=== PATIENT | female | born 1970 | race Caucasian/White ===

== ENCOUNTER 2020-08-06 20:29 | Emergency (ER) | payer MEDICAID, SELFPAY ==
[2020-08-06 20:45] VITALS: BP 154/77; PULSE 62; RESP 18; TEMP 36.8; O2SAT 98; BMI 31.1
--- NOTE | 2020-08-06 20:52 | XRR_ITS ---
PROCEDURE INFORMATION: Exam: XR Right Foot Complete Exam date and time: 08/06/2020 9:17 PM Age: 50 years old Clinical indication: Injury or trauma; Fall; Sprain or strain; Foot; Right TECHNIQUE: Imaging protocol: XR Right foot. Views: 3 or more views. COMPARISON: No relevant prior studies available. FINDINGS: Bones/joints: Normal. Soft tissues: Normal. XR/XR foot RT min 3V* [id number] IMPRESSION: No acute findings.
--- NOTE | 2020-08-06 20:52 | XRR_ITS ---
PROCEDURE INFORMATION: Exam: XR Right Ankle Exam date and time: 08/06/2020 9:17 PM Age: 50 years old Clinical indication: Injury or trauma; Fall; Swelling (edema); Ankle; Right TECHNIQUE: Imaging protocol: XR Right ankle. Views: 3 or more views. COMPARISON: No relevant prior studies available. FINDINGS: Bones/joints: Normal. Soft tissues: Normal. XR/XR ankle RT min 3V* [id number] IMPRESSION: No acute findings.
--- NOTE | 2020-08-06 20:56 | XRR_ITS ---
PROCEDURE INFORMATION: Exam: XR Right Elbow Exam date and time: 08/06/2020 9:19 PM Age: 50 years old Clinical indication: Injury or trauma; Fall; Sprain or strain; Elbow; Right TECHNIQUE: Imaging protocol: XR Right elbow. Views: 3 or more views. COMPARISON: No relevant prior studies available. FINDINGS: Bones/joints: Normal. Soft tissues: Normal. XR/XR elbow RT min 3V* [id number] IMPRESSION: No acute findings.
--- NOTE | 2020-08-06 20:58 | W.ED.FALL ---
HPI - Fall General: Chief Complaint: Fall Stated Complaint: pain on right side/fall Time Seen by Provider: 08/06/20 20:54 Source: patient Mode of arrival: ambulatory Limitations: no limitations History of Present Illness: HPI Narrative: 50-year-old female states she was walking this evening and rolled her right foot on a big rock. She states that she rolled on the lateral aspect is having mainly pain to the lateral aspect of her right foot. Patient has mild ankle pain. She states she then fell and landed on her right elbow and has elbow pain she rates a 3 out of 10. States the worst pain is by far in her foot that she rates a 6 out of 10. She is able to ambulate but states it is painful. She denies any other injuries with her fall. Denies hitting her head. Associated symptoms-after fall: Denies abdominal pain, chest pain or headache(s) Review of Systems Const: Denies: fever(s), chills, body aches or change in appetite Eyes: Denies: blurry vision or eye discomfort ENMT: Denies: throat pain or dental pain Card: Denies: chest pain Resp: Denies: dyspnea GI: Denies: abdominal pain, nausea, vomiting or diarrhea : Denies: dysuria Musc: Reports: extremity pain Skin/Breast: Denies: rash Neuro: Denies: headache(s) Psych: Denies: depression Steven/Lymph: Denies: easy bruising All/Imm: Denies: urticaria [facility] Female Reproductive History: Date of last menstrual period: 08/03/20 Physical Exam Const: COMMON NORMALS: no acute distress, patient oriented x3 and healthy appearing HENMT: COMMON NORMALS: normocephalic and atraumatic HEAD & SCALP: normocephalic and atraumatic Eye: COMMON NORMALS: Equal, round and reactive pupils present and EOMs intact bilaterally PUPIL: Yes Equal, round and reactive pupils present Neck/C-Spine: COMMON NORMALS: full ROM and supple Chest: COMMONS NORMALS: normal inspection of the chest and normal palpation of entire chest wall Resp: COMMON NORMALS: normal respiratory effort, No retractions, No use of accessory muscles and clear to auscultation bilaterally AUSCULTATION: clear to auscultation bilaterally Cardio: COMMON NORMALS: regular rate, regular rhythm and No murmurs present (Cardio) RATE: regular rate RHYTHM: regular rhythm GI: COMMON NORMALS: Normal to inspection, nondistended, normoactive bowel sounds present, Soft to palpation, non-tender and no masses PALPATION: Yes Soft to palpation Extremity: NARRATIVE EXTREMITY EXAM: Slight tenderness over olecranon process on the right elbow. She has full range of motion without any deformity. She has very minimal right ankle tenderness but does have tenderness over the right lateral aspect of her foot but no deformities. Neuro: COMMON NORMALS: patient oriented x3, moves all extremities and no focal motor deficits Psych: COMMON NORMALS: mental status grossly normal, Normal thought process present and cooperative THOUGHT PROCESS: Normal thought process present Skin: COMMON NORMALS: no rashes or lesions noted and no wounds GENERAL SKIN EXAM: no rashes or lesions noted Course Vital Signs: Vital signs: Vital Signs Temperature 98.3 F 08/06/20 20:45 Pulse Rate 62 08/06/20 20:45 Respiratory Rate 18 08/06/20 20:45 Blood Pressure 154/77 08/06/20 20:45 Pulse Oximetry 98 08/06/20 20:45 MDM - Fall MDM Narrative: Medical decision making narrative: Patient presents with a fall. Patient has a foot sprain with no signs of fracture. She is able ambulate will Cas wrap and have her weight-bear as tolerated. She is to ice and use Naprosyn. X-ray of her elbow is normal and likely has a contusion. She is stable for discharge is to follow-up with her PCP and return if worsening. Imaging Data^: X-ray right foot: Attestation: I personally reviewed and interpreted this imaging study as follows: My impression: No acute abnormality X-ray right ankle: My impression: No acute abnormality Discharge Plan Discharge Patient Disposition: Home Clinical Impression: Contusion of elbow, right Foot sprain Qualifiers: Encounter type: initial encounter Laterality: right Qualified Code(s): S93.601A - Unspecified sprain of right foot, initial encounter Condition: Stable Prescriptions: New Naprosyn 500 mg tablet 500 mg PO BID PRN (Reason: pain) Qty: 20 RF: 0 Discharge Orders: Discharge Order (Routine); Ordered 08/06/20 Ordered By: Vickie Menjivar Referrals: Francisco Corcoran FNP [Primary Care Provider] - Discharge Diet: Advance as tolerated Discharge Activity: Resume usual activity Patient Instructions: Foot Sprain (ED) Coding Level of Care Code ED Inbound Sales Consultant for Dejon Fwvianca Exam Comprehensive
[2020-08-06] MEDS: HYDROcodone-acetaminophen 5-325 mg Tablet 1 TAB PO (21:25)
--- NOTE | 2020-08-06 21:27 | PC.NURSE ---
3 inch loli wrap applied to R ankle all SMCs intact prior and post procedure. Pt tolerated well.
[2020-08-06 22:03] VITALS: BP 142/74; PULSE 88; RESP 16; O2SAT 99
== END 2020-08-06 22:04 | disposition home or self-care (01) ==
PROVIDERS: Emergency Provider Emergency Medicine; PCP Nurse Practitioner Family
DX: S93.601A Unspecified sprain of right foot, initial encounter (principal); S50.01XA Contusion of right elbow, initial encounter; W19.XXXA Unspecified fall, initial encounter
CPT/HCPCS: 12345; 73080; 73610; 73630; 99282; 99283

== ENCOUNTER 2021-06-18 16:44 | Emergency (ER) | payer MEDICAID, SELFPAY ==
[2021-06-18 17:34] VITALS: BP 162/78; PULSE 74; RESP 18; TEMP 36.9; O2SAT 99
[2021-06-18 18:04] VITALS: BP 116/73; PULSE 63; RESP 16; TEMP 36.8; O2SAT 99
--- NOTE | 2021-06-18 18:28 | W.ED.ANIMALB ---
HPI - Animal Bite General: Chief Complaint: Animal Bite Stated Complaint: ANIMAL BITE Time Seen by Provider: 06/18/21 18:13 History of Present Illness: HPI narrative: Patient is a 50-year-old female comes to the ED with a dog bite to her right lower leg. Patient was [place] a campground today and was walking back to her campsite and another dog ran up and bit her right lower ankle. Attack was unprovoked. Patient says the dog appeared to be a pit ball. She was able to get in contact with the tie in hand of the dog and they do have paper showing that the dog has been fully vaccinated and has had his rabies vaccination. After dog bite patient cleaned wound with some alcohol and then apply triple antibiotic ointment and bandage. Patient is up-to-date on her tetanus. Associated symptoms: Deny chills, fever(s) or headache(s) Review of Systems Const: Denies: fever(s), chills or fatigue Eyes: Denies: change in vision or eye discomfort ENMT: Denies: throat pain, odynophagia, nasal discharge or nasal congestion Card: Denies: chest pain, palpitations, edema, swelling of feet/ankles, dyspnea on exertion or orthopnea Resp: Denies: dyspnea, productive cough or non-productive cough GI: Denies: abdominal pain, nausea, vomiting, diarrhea, constipation or hematochezia : Denies: flank pain, dysuria or hematuria Musc: Denies: neck pain, back pain or extremity swelling Skin/Breast: Reports: new lesions (dog bite to right lower leg); Denies: rash Neuro: Denies: headache(s), numbness in extremities or weakness in extremities [facility] ED PFSH: Medical History No pertinent past medical history Surgical History No pertinent past surgical history Family History Grandmother Cancer breast Son Cancer hodgkins Lymphoma Denies family history of Diabetes CAD (coronary artery disease) Anesthesia complication Bleeding disorder Social History Smoking and tobacco status: never smoked Second hand smoke exposure: No Alcohol intake: never Lives independently: Yes Household members: spouse Marital status: service: No Current occupational status: disabled History of recent travel: No Current gender identity: Female Special dorian needs: No Agree to transfusion: Yes Female Reproductive History: Date of last menstrual period: 08/03/20 Physical Exam Const: COMMON NORMALS: no acute distress, patient oriented x3, healthy appearing and alert GENERAL APPEARANCE: cooperative and comfortable HENMT: COMMON NORMALS: normocephalic HEAD & SCALP: normocephalic MOUTH: Normal oral and palatal mucosa present THROAT: posterior oropharynx normal and uvula midline Neck/C-Spine: COMMON NORMALS: supple GENERAL: Yes normal visual inspection Resp: COMMON NORMALS: normal respiratory effort, No retractions, No use of accessory muscles and clear to auscultation bilaterally AUSCULTATION: clear to auscultation bilaterally Cardio: COMMON NORMALS: regular rate, regular rhythm, S1 normal heart sound present, S2 normal heart sound present, No gallops present (Cardio), No clicks present (Cardio), No murmurs present (Cardio) and Peripheral pulses 2+ throughout RATE: regular rate RHYTHM: regular rhythm HEART SOUNDS: S1 normal heart sound present and S2 normal heart sound present PERIPHERAL PULSES: Peripheral pulses 2+ throughout GI: COMMON NORMALS: Normal to inspection, nondistended, normoactive bowel sounds present, Soft to palpation, non-tender and no masses PALPATION: Yes Soft to palpation : COMMON NORMALS: Yes no CVA tenderness BLADDER/KIDNEY EXAM: Yes no CVA tenderness Back/Pelvis: COMMON NORMALS: no CVA tenderness Extremity: NARRATIVE EXTREMITY EXAM: Right lower extremity?0.75cm superficial linear laceration on posterior aspect of right lower leg just superior to the ankle. Minimal bleeding noted. Some superficial abrasions also noted to right lower leg with some ecchymosis as well. GENERAL: Yes normal exam except as noted Neuro: COMMON NORMALS: patient oriented x3 and moves all extremities SENSORIUM/ORIENTATION: Yes alert Skin: NARRATIVE SKIN EXAM: Right lower extremity?0.75cm superficial linear laceration on posterior aspect of right lower leg just superior to the ankle. Minimal bleeding noted. Some superficial abrasions also noted to right lower leg with some ecchymosis as well. GENERAL SKIN EXAM: dry skin Procedures Laceration Laceration 1: Site: lower extremity (posterior lower leg just superior to ankle) Side (If applicable): right Size (cm): 0.75 Description: linear and clean Depth: simple, single layer Local Anesthetic: lidocaine 1% and with epi Amount of anesthesia used (mL): 10 Pre-repair: irrigated extensively (With normal saline and cleaned with iodine swab) Skin layer closed with: nylon Size (cm): 4-0 Number of sutures: 2 Technique: simple, interrupted Course Vital Signs: Vital signs: Vital Signs Temperature 97.7 F 06/18/21 19:41 Pulse Rate 60 06/18/21 19:41 Respiratory Rate 16 06/18/21 19:41 Blood Pressure 129/82 06/18/21 19:41 Pulse Oximetry 99 06/18/21 19:41 MDM - Animal Bite MDM Narrative: Medical decision making narrative: Patient is a 50-year-old female comes to the ED with a dog bite to right lower extremity. The dog that bit patient is fully vaccinated and has had rabies vaccination. Bite on right lower leg was irrigated extensively with normal saline and cleaned with iodine swab. Lidocaine 1% with epi was used as local and then 2 sutures were placed to close laceration from bite allison. Patient was given a dose of Augmentin here and then the nurse applied triple antibiotic ointment on bite and bandaged. Patient was told to follow-up with PCP in 7 to 10 days reevaluation. Return to ED precautions given. She was discharged home with a prescription for Augmentin. Patient understood and agreed with plan. Discharge Plan Discharge Patient Disposition: Home Clinical Impression: Dog bite Qualifiers: Encounter type: initial encounter Qualified Code(s): W54.0XXA - Bitten by dog, initial encounter Condition: Stable Prescriptions: New Augmentin 500-125 mg tablet 1 tab PO BID 7 Days Qty: 14 RF: 0 No Action valacyclovir [Valtrex] 1 gram tablet 1,000 mg PO Q8H 7 Days Qty: 21 RF: 0 pregabalin [Lyrica] 50 mg capsule 50 mg PO TID Qty: 90 RF: 0 Naprosyn 500 mg tablet 500 mg PO BID PRN (Reason: pain) Qty: 20 RF: 0 Discharge Orders: Discharge ED (Routine); Ordered 06/18/21 Ordered By: Harpreet Guevara Referrals: Francisco Corcoran FNP [Primary Care Provider] - Discharge Diet: Regular Discharge Activity: Limit activity as instructed Patient Instructions: Animal Bite (ED), Suture Care (ED), Laceration (ED) Activity Restrictions/Additional Instructions: Take full course of antibiotics as prescribed. Keep laceration site clean and dry for the next 48 hours. Then after that you can clean and re-bandage daily. Watch for signs of infection such as redness, warmth, increased tenderness and puslike drainage. If you see the signs of infection return to the ED, urgent care or PCP for reevaluation. call your PCP to schedule a follow-up appointment for reevaluation and suture removal in about 10 days. Continue taking all home meds. Follow discharge plans as discussed. You can return to the ED if symptoms worsen. Coding Level of Care Code ED Quality Improvement Analyst for Dejon Thomason Exam Comprehensive
[2021-06-18] MEDS: neomycin-poly-bacitracin oint 0.9 gm Pkt 1 APPLIC TOPICAL (19:13)
[2021-06-18] MEDS: amoxicillin-clav 500-125 mg Tablet 1 TAB PO (19:14)
--- NOTE | 2021-06-18 19:22 | PC.NURSE ---
Patients wounds are cleaned and dressed on thumb and dressed on right lower calf. Patient tolerates without complaint.
[2021-06-18 19:41] VITALS: BP 129/82; PULSE 60; RESP 16; TEMP 36.5; O2SAT 99
== END 2021-06-18 19:44 | disposition home or self-care (01) ==
PROVIDERS: Emergency Provider Physician Assistant; PCP Nurse Practitioner Family
DX: S81.851A Open bite, right lower leg, initial encounter (principal); W54.0XXA Bitten by dog, initial encounter
CPT/HCPCS: 12001; 99283

== ENCOUNTER 2021-06-21 19:20 | Emergency (ER) | payer MEDICAID, SELFPAY ==
[2021-06-21 19:43] VITALS: BP 135/74; PULSE 101; RESP 18; TEMP 37.4; O2SAT 100; BMI 30.4
--- NOTE | 2021-06-21 22:06 | W.ED.ANIMALB ---
HPI - Animal Bite General: Chief Complaint: Animal Bite Stated Complaint: Dog Bite Infected Time Seen by Provider: 06/21/21 22:06 History of Present Illness: HPI narrative: 50-year-old female comes in today for complaints of malaise, chills, and increased pain to the right lower extremity. On the patient was bit by a dog while at the park. Patient was started on Augmentin taking the first dose on Saturday. Patient comes in due to worsening symptoms. Patient is alert oriented. Review of Systems General: Reports: 10 or more systems reviewed and unremarkable except in HPI and below Skin/Breast: Reports: other (Pain and redness to wound) PFSH ED PFSH: Medical History No pertinent past medical history Surgical History No pertinent past surgical history Family History Grandmother Cancer breast Son Cancer hodgkins Lymphoma Denies family history of Diabetes CAD (coronary artery disease) Anesthesia complication Bleeding disorder Social History Smoking and tobacco status: never smoked Second hand smoke exposure: No Alcohol intake: never Lives independently: Yes Household members: spouse Marital status: service: No Current occupational status: disabled History of recent travel: No Current gender identity: Female Special dorian needs: No Agree to transfusion: Yes Female Reproductive History: Date of last menstrual period: 08/03/20 Physical Exam Const: COMMON NORMALS: no acute distress and patient oriented x3 GENERAL APPEARANCE: cooperative HENMT: COMMON NORMALS: normocephalic and Normal external nose present HEAD & SCALP: normal to inspection and normocephalic NOSE: Normal external nose present MOUTH: Normal oral and palatal mucosa present Eye: GENERAL EYE: appearance normal, both eyes and all related structures Neck/C-Spine: COMMON NORMALS: full ROM Chest: COMMONS NORMALS: normal inspection of the chest Resp: COMMON NORMALS: normal respiratory effort EFFORT & INSPECTION: Yes able to speak in complete sentences Cardio: COMMON NORMALS: regular rate and regular rhythm RATE: regular rate RHYTHM: regular rhythm GI: COMMON NORMALS: non-tender Extremity: COMMON NORMALS: normal to inspection Neuro: COMMON NORMALS: patient oriented x3 and moves all extremities Psych: COMMON NORMALS: mental status grossly normal and cooperative Skin: NARRATIVE SKIN EXAM: 2 cm draining linear laceration wound to the posterior right lower leg. 3 cm area of surrounding redness from the wound. Course Vital Signs: Vital signs: Vital Signs Temperature 99.4 F 06/21/21 19:43 Pulse Rate 80 06/21/21 22:22 Respiratory Rate 16 06/21/21 22:22 Blood Pressure 151/80 06/21/21 22:22 Pulse Oximetry 97 06/21/21 22:22 MDM - Animal Bite MDM Narrative: Medical decision making narrative: 50-year-old female comes in today with complaints of right lower leg pain at the site of a animal bite. Patient was concerned due to the worsening discomfort and pain to the leg and along the malaise today. On exam we note some redness to the wound site with 2 sutures maintaining approximation of the wound. Some purulent drainage is noted from the wound. Distal pulses are intact. Skin is warm and dry. Respirations are even. Abdomen soft nontender. Differential diagnosis includes foreign body, abscess, malingering. X-ray of the leg noted no foreign body. Ultrasound of the soft tissue noted no abscess. Laboratory values noted a normal white blood cell count, patient did have some changes in her sodium and potassium that may suggest some mild dehydration. Patient was given 500 mL of fluids 1 g of Rocephin and 15 mg of Toradol. Patient had improvement in symptoms. We will plan to stop the Augmentin and switch to cefdinir I think the patient might be having some intolerance to the Augmentin which is causing her discomfort and nausea. Patient will also be put on crutches due to her increased pain with ambulation on the leg. No signs of serious infection was noted at this time. Patient was written for 6 tablets of hydrocodone to help with pain. Sutures were removed for wound to allow for any drainage. Patient reported understanding of care plan and need for follow-up and return. Lab Data: Labs: Lab Results 06/21/21 06/21/21 06/21/21 Range/Units 22:15 22:15 22:15 WBC 5.3 (4.0-10.0) 10^3/ uL RBC 4.35 (4.1-5.3) 10^6/u L Hgb 13.1 (11.5-15.3) g/dL Hct 38.7 (37.0-47.0) % MCV 89.0 (81-99) fl MCH 30.1 (28.0-34.0) pg MCHC 33.9 (30.0-36.0) g/dL RDW 12.3 (12.1-15.1) % Plt Count 193 (130-400) 10^3/c mm MPV 10.1 (7.4-10.4) fL Neut % (Auto) 77.5 % Lymph % (Auto) 9.3 % [place] % (Auto) 12.0 % Eos % (Auto) 0.6 % Baso % (Auto) 0.4 % Neut # (Auto) 4.09 (1.8-7.7) 10^3/u L Lymph # (Auto) 0.5 L (0.8-4.8) 10^3/u L [place] # (Auto) 0.6 (0.2-0.9) 10^3/u L Eos # (Auto) 0.0 (0.0-0.8) 10^3/u L Baso # (Auto) 0.0 (0.0-0.1) 10^3/u L Nucleated RBC % (a uto) 0 % Nucleated RBCs # 0.0 /100WBC Sodium 135 L (136-145) mmol/L Potassium 3.2 L (3.5-5.1) mmol/L Chloride 97 L (98-107) mmol/L Carbon Dioxide 25 (22-29) mmol/L Anion Gap 16.2 (5-19) BUN 4 L (6-20) mg/dL Creatinine 0.5 (0.5-0.9) mg/dL GFR Calculation 130.6 H (90-130) mL/min Glucose 86 (65-115) mg/dL Calculated Osmolal ity 276 L (285-295) mOsm/k g Lactic Acid 0.7 (0.5-2.2) mmol/L Calcium 8.7 (8.5-10.5) mg/dL Total Bilirubin 0.3 (0.15-1.2) mg/dL AST 12 (0-32) U/L ALT 9 (0-33) U/L Alkaline Phosphata se 65 (35-105) IU/L Total Protein 8.1 (6.6-8.7) g/dL Albumin 4.2 (3.5-5.2) g/dL Globulin 3.9 (1.3-4.6) g/dL Discharge Plan Discharge Patient Disposition: Home Clinical Impression: Infected dog bite Adverse drug effect Qualifiers: Encounter type: initial encounter Qualified Code(s): T50.905A - Adverse effect of unspecified drugs, medicaments and biological substances, initial encounter Condition: Stable Prescriptions: New cefdinir 300 mg capsule 300 mg PO BID Qty: 14 RF: 0 ondansetron 4 mg tablet,disintegrating 4 mg PO Q8H PRN (Reason: nausea and vomiting) Qty: 7 RF: 0 hydrocodone-acetaminophen 5-325 mg tablet 1 tab PO Q8H PRN (Reason: pain (scale score 7-10)) Qty: 6 RF: 0 No Action valacyclovir [Valtrex] 1 gram tablet 1,000 mg PO Q8H 7 Days Qty: 21 RF: 0 pregabalin [Lyrica] 50 mg capsule 50 mg PO TID Qty: 90 RF: 0 Naprosyn 500 mg tablet 500 mg PO BID PRN (Reason: pain) Qty: 20 RF: 0 Augmentin 500-125 mg tablet 1 tab PO BID 7 Days Qty: 14 RF: 0 Discharge Orders: Discharge ED (Routine); Ordered 06/21/21 Ordered By: Jacek Walsh Discharge Diet: Usual diet Discharge Activity: Increase activity as tolerated Patient Instructions: Animal Bite (ED), Opioid Safety Activity Restrictions/Additional Instructions: Home and rest. Drink plenty of water with antibiotics. Elevate leg. Use medications as directed. Follow-up with primary care in 2 to 3 days for recheck. Return to the ER for worsening symptoms or new concerns. Use crutches until you can ambulate comfortably on leg. Coding Level of Care Code ED Data Keyer for Dejon Thomason Exam Comprehensive
--- NOTE | 2021-06-21 22:13 | XRR_ITS ---
PROCEDURE INFORMATION: Exam: XR Right Tibia and Fibula Exam date and time: 06/21/2021 10:13 PM Age: 50 years old Clinical indication: Injury or trauma; Wound; Ankle; Right; Foreign body involvement not specified; Patient HX: Dog bite to distal tib/fib. ; Additional info: Animal bite TECHNIQUE: Imaging protocol: XR Right tibia and fibula. Views: 2 views. COMPARISON: CR XR foot RT min 3V* [id number] 08/06/2020 8:58 PM FINDINGS: Bones/joints: Normal. Soft tissues: Normal. XR/XR tibia fibula RT 2V [id number] IMPRESSION: No acute findings.
--- NOTE | 2021-06-21 22:14 | USR_ITS ---
PROCEDURE INFORMATION: Exam: US Unlisted Ultrasound Procedure Exam date and time: 06/21/2021 10:14 PM Age: 50 years old Clinical indication: Pain: Pain near dog bite; Additional info: Right lower ext, animal bite, R/O abscess TECHNIQUE: Imaging protocol: Unlisted ultrasound procedure (eg, diagnostic, interventional). COMPARISON: No relevant prior studies available. FINDINGS: Procedural imaging: No abscess from dog bite 3 days ago. US/US soft tissue/extremity [id number] IMPRESSION: No abscess from dog bite 3 days ago.
[2021-06-21 22:22] VITALS: BP 151/80; PULSE 80; RESP 16; O2SAT 97
[2021-06-21 22:29] LABS: Basophils % 0.4 %; Eosinophils % 0.6 %; Hematocrit 38.7 % (37.0-47.0); Hemoglobin 13.1 g/dL (11.5-15.3); Lymphocytes # 0.5 10^3/uL (0.8-4.8); Lymphocytes % 9.3 %; Mean Corpuscular HGB Conc 33.9 g/dL (30.0-36.0); Mean Corpuscular Hemoglobin 30.1 pg (28.0-34.0); Mean Platelet Volume 10.1 fL (7.4-10.4); Monocytes # 0.6 10^3/uL (0.2-0.9); Neutrophils # 4.09 10^3/uL (1.8-7.7); Neutrophils % 77.5 %; Nucleated Red Blood Cells % 0 %; Platelet Count 193 10^3/cmm (130-400); Red Blood Count 4.35 10^6/uL (4.1-5.3); Red Cell Distribution Width 12.3 % (12.1-15.1); White Blood Count 5.3 10^3/uL (4.0-10.0)
[2021-06-21] MEDS: ondansetron 2 mg/ML SDV 2 mL 4 MG IVP (22:39)
[2021-06-21] MEDS: cefTRIAXone 1,000 MG in sodium chloride 0.9% (plus) 50 ML 100 MG IV (22:39)
[2021-06-21] MEDS: ketorolac 30 mg/mL INJ 15 MG IVP (22:39)
[2021-06-21] MEDS: sodium chloride 0.9% 500 ML 999 ML IV (22:40)
[2021-06-21 22:41] LABS: Alanine Aminotransferase 9 U/L (0-33); Albumin Level 4.2 g/dL (3.5-5.2); Alkaline Phosphatase 65 IU/L (35-105); Anion Gap 16.2 (5-19); Aspartate Amino Transferase 12 U/L (0-32); Blood Urea Nitrogen 4 mg/dL (6-20); Calcium 8.7 mg/dL (8.5-10.5); Carbon Dioxide 25 mmol/L (22-29); Chloride 97 mmol/L (98-107); Globulin 3.9 g/dL (1.3-4.6); Glomerular Filtration Rate 130.6 mL/min (90-130); Glucose 86 mg/dL (65-115); Osmolality Calculated 276 mOsm/kg (285-295); Potassium 3.2 mmol/L (3.5-5.1); Sodium 135 mmol/L (136-145); Total Bilirubin 0.3 mg/dL (0.15-1.2); Total Protein 8.1 g/dL (6.6-8.7)
[2021-06-21 22:42] LABS: Lactic Sepsis W/Reflex 0.7 mmol/L (0.5-2.2)
[2021-06-22 00:35] VITALS: BP 130/65; PULSE 84; RESP 16; O2SAT 98
== END 2021-06-22 00:38 | disposition home or self-care (01) ==
PROVIDERS: Emergency Provider Nurse Practitioner Family
DX: S81.851A Open bite, right lower leg, initial encounter (principal); L08.9 Local infection of the skin and subcutaneous tissue, unspecified; W54.0XXA Bitten by dog, initial encounter; T36.0X5A Adverse effect of penicillins, initial encounter; T36.1X5A Adverse effect of cephalosporins and other beta-lactam antibiotics, initial encounter
CPT/HCPCS: 73590; 76882; 80053; 83605; 85025; 87040; 96365; 96375; 99284; E0114; J0696; J1885; J2405; J7040

== ENCOUNTER 2021-11-05 13:31 | Emergency (ER) | payer MEDICAID, SELFPAY ==
[2021-11-05 13:41] VITALS: BP 150/79; PULSE 79; RESP 18; TEMP 37; O2SAT 100; BMI 28.6
--- NOTE | 2021-11-05 13:51 | W.ED.FALL ---
HPI - Fall General: Chief Complaint: Fall Stated Complaint: Fell last night landed on R shoulder and elbow Time Seen by Provider: 11/05/21 13:48 PFSH ED PFSH: Medical History No pertinent past medical history Surgical History No pertinent past surgical history Family History Grandmother Cancer breast Son Cancer hodgkins Lymphoma Denies family history of Diabetes CAD (coronary artery disease) Anesthesia complication Bleeding disorder Social History Smoking and tobacco status: never smoked Second hand smoke exposure: No Alcohol intake: never Lives independently: Yes Household members: spouse Marital status: service: No Current occupational status: disabled History of recent travel: No Current gender identity: Female Special dorian needs: No Agree to transfusion: Yes Female Reproductive History: Date of last menstrual period: 10/01/21 Course Vital Signs: Vital signs: Vital Signs Temperature 98.6 F 11/05/21 13:41 Pulse Rate 79 11/05/21 13:41 Respiratory Rate 18 11/05/21 13:41 Blood Pressure 150/79 11/05/21 13:41 Pulse Oximetry 100 11/05/21 13:41 Discharge Plan Discharge Prescriptions: No Action valacyclovir [Valtrex] 1 gram tablet 1,000 mg PO Q8H 7 Days Qty: 21 RF: 0 pregabalin [Lyrica] 50 mg capsule 50 mg PO TID Qty: 90 RF: 0 Naprosyn 500 mg tablet 500 mg PO BID PRN (Reason: pain) Qty: 20 RF: 0 cefdinir 300 mg capsule 300 mg PO BID Qty: 14 RF: 0 ondansetron 4 mg tablet,disintegrating 4 mg PO Q8H PRN (Reason: nausea and vomiting) Qty: 7 RF: 0 hydrocodone-acetaminophen 5-325 mg tablet 1 tab PO Q8H PRN (Reason: pain (scale score 7-10)) Qty: 6 RF: 0 Coding Level of Care Code ED Top Stop Attacher for Dejon Thomason
--- NOTE | 2021-11-05 13:54 | XRR_ITS ---
PROCEDURE INFORMATION: Exam: XR Right Shoulder Exam date and time: 11/05/2021 1:54 PM Age: 51 years old Clinical indication: Injury or trauma; Fall; Blunt trauma (contusions or hematomas); Shoulder; Right; Additional info: Injury/fall/pain TECHNIQUE: Imaging protocol: XR Right shoulder. Views: 3 views. Other technique: AP internal and external rotation views, and a scapular Y view of the right shoulder. COMPARISON: CR Chest 1 [place] [id number] 09/16/2017 7:18 PM FINDINGS: Bones/joints: Normal. Soft tissues: Normal. XR/XR shoulder RT min 2V* [id number] IMPRESSION: No acute bony injury identified.
--- NOTE | 2021-11-05 13:54 | XRR_ITS ---
PROCEDURE INFORMATION: Exam: XR Right Elbow Exam date and time: 11/05/2021 1:54 PM Age: 51 years old Clinical indication: Injury or trauma; Fall; Blunt trauma (contusions or hematomas); Elbow; Right; Additional info: Trauma/pain TECHNIQUE: Imaging protocol: XR Right elbow. Views: Frontal, lateral, and oblique, 3 views. COMPARISON: No relevant prior studies available. FINDINGS: Bones/joints: Normal. Soft tissues: Normal. XR/XR elbow RT min 3V* [id number] IMPRESSION: No acute findings.
--- NOTE | 2021-11-05 13:54 | XRR_ITS ---
PROCEDURE INFORMATION: Exam: XR Right Humerus Exam date and time: 11/05/2021 1:54 PM Age: 51 years old Clinical indication: Injury or trauma; Fall; Blunt trauma (contusions or hematomas); Arm, upper; Right; Additional info: Injury/pain TECHNIQUE: Imaging protocol: XR Right humerus. Views: 2 views. COMPARISON: CR Chest 1 [place] [id number] 09/16/2017 7:18 PM FINDINGS: Bones/joints: Normal. Soft tissues: Normal. XR/[place] [id number] IMPRESSION: No acute findings.
--- NOTE | 2021-11-05 13:55 | ED_ITS ---
HPI - Extremity Injury (Upper) General: Chief Complaint: Fall Stated Complaint: Fell last night landed on R shoulder and elbow Time Seen by Provider: 11/05/21 13:48 Source: patient Mode of arrival: ambulatory Limitations: no limitations History of Present Illness: HPI narrative: Patient is a nice 51-year-old female who presents to ED today for evaluation of a right upper extremity injury. Patient states yesterday she accidentally slipped on ice and landed onto her right shoulder and elbow. Patient denies striking her head or LOC. She denies neck or back pain. She has been ambulatory since the fall without difficulty. She states pain continued throughout the night and into today prompting her ED evaluation. She complains of pain to the right shoulder, humerus, and right elbow. Denies numbness, tingling, loss of sensation to the extremity. She has no other injuries or complaints at this time. complaint: injury to: right and shoulder Onset (ago): hour(s) Other injuries: none Place: home Severity: moderate Relieving factors: immobilization Exacerbating factors: movement of extremity Context: fall Associated symptoms: Reports no associated symptoms; Denies neck pain or weakness in extremities Review of Systems Card: Denies: chest pain Resp: Denies: dyspnea GI: Denies: abdominal pain : Denies: flank pain or hematuria Musc: Reports: joint pain (R shoulder, arm, R elbow) and limited range of motion; Denies: neck pain, back pain, extremity swelling or joint swelling Neuro: Denies: headache(s), numbness in extremities, weakness in extremities or sensory changes [facility] ED PFSH: Medical History No pertinent past medical history Surgical History No pertinent past surgical history Family History Grandmother Cancer breast Son Cancer hodgkins Lymphoma Denies family history of Diabetes CAD (coronary artery disease) Anesthesia complication Bleeding disorder Social History Smoking and tobacco status: never smoked Second hand smoke exposure: No Alcohol intake: never Lives independently: Yes Household members: spouse Marital status: service: No Current occupational status: disabled History of recent travel: No Current gender identity: Female Special dorian needs: No Agree to transfusion: Yes Female Reproductive History: Date of last menstrual period: 10/01/21 Physical Exam Const: COMMON NORMALS: no acute distress, average body habitus, patient oriented x3, no limitations, healthy appearing, alert and well nourished GENERAL APPEARANCE: cooperative ORIENTATION/CONSCIOUSNESS: Yes awake, Yes oriented to person, Yes oriented to place and Yes oriented to time HENMT: COMMON NORMALS: normocephalic and atraumatic HEAD & SCALP: normocephalic and atraumatic Neck/C-Spine: COMMON NORMALS: full ROM CERVICAL SPINE: Yes cervical ROM normal, No pain with cervical ROM, No Cervical spine tenderness and No Paracervical muscle tenderness Chest: COMMONS NORMALS: normal inspection of the chest and normal palpation of entire chest wall Resp: COMMON NORMALS: normal respiratory effort Back/Pelvis: COMMON NORMALS: thoracic and lumbar spine normal to inspection, no thoracic nor lumbar tenderness and thoraco-lumbar ROM normal Extremity: GENERAL: Yes normal exam except as noted RIGHT UPPER EXTREMITY: Yes shoulder joint (TTP glenohumeral joint) Right shoulder: Yes Right shoulder joint ROM exam (limited secondary to pain) and Yes Right shoulder joint neurovascular exam (normal) and Yes elbow joint (no effusion or bony deformity; TTP olecranon) Right elbow: Yes ROM (full but painful ROM) and Yes neurovascular exam (normal) Neuro: SID COMA SCALE: document GCS findings Sid coma scale eye opening: Spontaneous Sid coma scale verbal response: Orientated Sid coma scale motor response: Obey commands [place] coma scale total score: 15 COMMON NORMALS: patient oriented x3, CN's II-XII intact bilaterally, moves all extremities, no focal motor deficits, no sensory deficits noted and gait normal SENSORIUM/ORIENTATION: Yes alert, Yes oriented to person, Yes oriented to place and Yes oriented to time Skin: COMMON NORMALS: no rashes or lesions noted GENERAL SKIN EXAM: no rashes or lesions noted TRAUMA: no lacerations or abrasions Course Vital Signs: Vital signs: Vital Signs Temperature 98.6 F 11/05/21 13:41 Pulse Rate 79 11/05/21 13:41 Respiratory Rate 18 11/05/21 13:41 Blood Pressure 150/79 11/05/21 13:41 Pulse Oximetry 100 11/05/21 13:41 MDM - Extremity Injury (Upper) MDM Narrative: Medical decision making narrative: XRs negative. Recommend conservative therapies x 1-2 wks and follow up with PCP if no improvement. Imaging Data^: XR R shoulder, humerus, elbow: My impression: NAD Discharge Plan Discharge Patient Disposition: Home Clinical Impression: Fall from slipping on ice Qualifiers: Encounter type: initial encounter Qualified Code(s): W00.9XXA - Unspecified fall due to ice and snow, initial encounter Injury of shoulder, right Qualifiers: Encounter type: initial encounter Qualified Code(s): S49.91XA - Unspecified injury of right shoulder and upper arm, initial encounter Condition: Stable Prescriptions: No Action valacyclovir [Valtrex] 1 gram tablet 1,000 mg PO Q8H 7 Days Qty: 21 RF: 0 pregabalin [Lyrica] 50 mg capsule 50 mg PO TID Qty: 90 RF: 0 Naprosyn 500 mg tablet 500 mg PO BID PRN (Reason: pain) Qty: 20 RF: 0 cefdinir 300 mg capsule 300 mg PO BID Qty: 14 RF: 0 ondansetron 4 mg tablet,disintegrating 4 mg PO Q8H PRN (Reason: nausea and vomiting) Qty: 7 RF: 0 hydrocodone-acetaminophen 5-325 mg tablet 1 tab PO Q8H PRN (Reason: pain (scale score 7-10)) Qty: 6 RF: 0 Discharge Orders: Discharge ED (Routine); Ordered 11/05/21 Ordered By: Jess Honeycutt Coding Level of Care Code ED Leasing Machine Tender for Chg Fwd Exam Comprehensive
== END 2021-11-05 15:00 | disposition home or self-care (01) ==
PROVIDERS: Emergency Provider Physician Assistant
DX: S49.91XA Unspecified injury of right shoulder and upper arm, initial encounter (principal); W00.0XXA Fall on same level due to ice and snow, initial encounter
CPT/HCPCS: 73030; 73060; 73080; 99282

== ENCOUNTER → 2022-03-21 10:04 | Outpatient (BNVA) | payer MEDICAID, SELFPAY | PROVIDERS: Referring Provider Radiology Diagnostic Radiology; Visit Provider Specialist | DX: M25.512 Pain in left shoulder (principal) | CPT/HCPCS: 73030; 99204 ==

== ENCOUNTER 2022-05-17 07:40 | Outpatient (CLI) | payer MEDICAID, SELFPAY ==
--- NOTE | 2022-05-17 08:00 | MR_ITS ---
WS: [id number] MRI LEFT SHOULDER NONCONTRAST TECHNIQUE: Sagittal T2, coronal T1, T2 and proton density imaging. Axial gradient PDE imaging. CLINICAL INFORMATION: pain COMPARISON: None. FINDINGS: Moderate degenerative arthritis at the AC joint with mild edema. Mild downsloping acromion. Tendinopa thy in the distal supraspinatus which is intact. Normal infraspinatus. Normal teres minor. Subscapula ris appears intact. No rotator cuff tears. Biceps tendon intact within the bicipital groove. Intra-articular biceps tendon appears intact. Sligh t degenerative fraying of the glenoid labrum. Normal bone marrow signal in the glenoid. No significan t joint effusion. A few small T2 hyperintense lesions in the proximal and mid humeral shaft partially visualized likely incidental enchondromas. MR/MR shoulder LT wo con* [id number] IMPRESSION: 1. Tendinopathy within the distal supraspinatus. No high-grade rotator cuff te ar. 2. Rotator cuff is otherwise intact. 3. Moderate degenerative arthritis AC joint with mild edema. Mild downsloping acromion. 4. Normal biceps tendon in the bicipital groove. 5. A few small T2 hyperintense lesions in the proximal and mid humeral shaft p artially visualized likely incidental enchondromas.
== END 2022-05-17 07:41 | disposition home or self-care (01) ==
LOC: RAD 07:41
PROVIDERS: Visit Provider Specialist
DX: M19.012 Primary osteoarthritis, left shoulder (principal); M25.512 Pain in left shoulder
CPT/HCPCS: 73221

== ENCOUNTER 2022-05-21 12:13 | Emergency (ER) | payer MEDICAID, SELFPAY ==
[2022-05-21] VITALS (13 sets, daily range): BP systolic 113–143; BP diastolic 62–76; PULSE 50–95; RESP 13–20; TEMP 36.8; O2SAT 96–100
--- NOTE | 2022-05-21 12:32 | CT_ITS ---
WS: [id number] CT HEAD TECHNIQUE: Noncontrast CT of the head obtained from the skullbase to the vertex. CLINICAL INFORMATION: Symptoms of Acute Stroke COMPARISON: None. DLP: 1154.[address] scans at [facility] use at least one of these dose optimization techniques: automated e xposure control; mA and/or kV adjustment per patient size (includes targeted exams where dose is matc hed to clinical indication); or iterative reconstruction. FINDINGS: No evidence of intracranial hemorrhage or mass effect. Ventricular system and basal cisterns are reich nt. No extra-axial fluid collections. No evidence of mass or mass effect. Normal tolliver-white differen tiation. Paranasal sinuses and mastoid air cells are well aerated. .Normal visualized soft tissues. CT/CT head wo con* [id number] IMPRESSION: 1. No evidence of intracranial hemorrhage or mass effect. 2. Normal tolliver-white differentiation. 3. No acute intracranial findings.
--- NOTE | 2022-05-21 12:32 | ECG_ITS ---
[facility] Test Date: 2022-05-21 Pat Name: Samanta Santana Department: Room: Gender: Female Medical Scientist: : 1970 Requested By: Hui Ruelas Order Number: [id number] Joseph MD: Juan Berg M.D. Measurements Intervals [place] Rate: 69 P: 62 MN: 200 QRS: 63 QRSD: 91 T: 48 QT: 388 QTc: 417 Interpretive Statements SINUS RHYTHM LEFT VENTRICULAR HYPERTROPHY AND ST-T CHANGE [VOLTAGE CRITERIA PLUS ST/T ABNORMALITY] No previous ECG available for comparison Electronically Signed On 05-21-2022 17:53:01 CDT by Juan Berg M.D. [id number]
--- NOTE | 2022-05-21 12:59 | ED_ITS ---
HPI - Neuro Symptoms/Deficit General: Chief Complaint: Neuro Symptoms/Deficit Stated Complaint: blurry vision, left side weakness, dizziness Time Seen by Provider: 05/21/22 12:51 Source: patient Mode of arrival: ambulatory Limitations: no limitations History of Present Illness: 51-year-old female presents to the emergency room Onset (ago): hour(s) Location: [facility] ED PFSH: Medical History No pertinent past medical history Surgical History No pertinent past surgical history Family History Grandmother Cancer breast Son Cancer hodgkins Lymphoma Denies family history of Diabetes CAD (coronary artery disease) Anesthesia complication Bleeding disorder Social History Smoking and tobacco status: never smoked Second hand smoke exposure: No Alcohol intake: never Lives independently: Yes Household members: spouse Marital status: service: No Current occupational status: disabled History of recent travel: No Current gender identity: Female Special dorian needs: No Agree to transfusion: Yes Female Reproductive History: Date of last menstrual period: 10/01/21 NIH stroke score NIHSS: Level Of Consciousness - 1a: 0 Level Of Consciousness Questions - 1b: Both Correct Level Of Consciousness Commands - 1c: Both Correct Best Gaze - 2: Normal Visual Alegre - 3: No Visual Loss Facial Palsy - 4: Normal Motor Arm Right - 5: No Drift Motor Arm Left - 5: Drift Motor Leg Right - 6: No Drift Motor Leg Left - 6: No Drift Limb Ataxia - 7: Absent Sensory - 8: Normal Best Language - 9: No Aphasia Dysarthia - 10: Normal Extinction And Inattention - 11: 0 Score: Total Score: 1 Physical Exam Const: COMMON NORMALS: no acute distress GENERAL APPEARANCE: cooperative and comfortable ORIENTATION/CONSCIOUSNESS: Yes awake, Yes oriented to person, Yes oriented to place and Yes oriented to time HENMT: COMMON NORMALS: normocephalic, atraumatic and hearing grossly normal bilaterally HEAD & SCALP: normocephalic and atraumatic Neck/C-Spine: COMMON NORMALS: no JVD Resp: COMMON NORMALS: normal respiratory effort, No retractions, No use of accessory muscles and clear to auscultation bilaterally AUSCULTATION: clear to auscultation bilaterally Cardio: COMMON NORMALS: no JVD, regular rate, regular rhythm and No murmurs present (Cardio) RATE: regular rate RHYTHM: regular rhythm GI: COMMON NORMALS: Soft to palpation and No hepatosplenomegaly present AUSCULTATION: Yes normoactive bowel sounds PALPATION: Yes Soft to palpation, No Tenderness to palpation present (GI), No Guarding due to palpation present (GI) and Yes No hepatosplenomegaly present Extremity: COMMON NORMALS: normal to inspection, capillary refill normal, no clubbing, cyanosis or edema, no calf tenderness and no pedal edema Neuro: SENSORIUM/ORIENTATION: Yes oriented to person, Yes oriented to place and Yes oriented to time Skin: COMMON NORMALS: no rashes or lesions noted GENERAL SKIN EXAM: no rashes or lesions noted Course Vital Signs: Vital signs: Vital Signs Temperature 98.3 F 05/21/22 12:40 Pulse Rate 70 05/21/22 16:45 Respiratory Rate 17 05/21/22 16:45 Blood Pressure 113/62 05/21/22 16:45 Pulse Oximetry 99 05/21/22 16:45 MDM - Neuro Symptoms/Deficit Medical Decision Making Labs and imaging reviewed. Patient has no focal neurologic deficit she did have some weakness it seemed in the left arm but on talking to her further she r eports she is had weakness in that arm for quite some time. Has seen Dr. Felix and is scheduled for a EMG of the left arm because of the symptoms that have persisted for some time that was the only significant finding at the time of exam when she presented. She has no other findings at this time. We will go ahead and discharge her home started on atorvastatin and aspirin she had not been taking anything for platelets prior to this. Her CTA was negative. We will set her up for follow-up with neurology after is completed. Medical Records I reviewed the patient's medical records. Lab Data I reviewed the patient's lab results. : 05/21/22 13:16 05/21/22 14:[address] 05/21/22 12:32 IMPRESSION: 1. No evidence of intracranial hemorrhage or mass effect. 2. Normal tolliver-white differentiation. 3. No acute intracranial findings. Head/Neck CTA 05/21/22 14:26 IMPRESSION: 1. No significant ICA stenosis bilaterally. 2. Normal intracranial CTA. No flow-limiting stenosis. 3. No other acute findings. Laboratory Results WBC 4.6 10^3/uL (4.0-10.0) 05/21/22 13:16 RBC 3.54 10^6/uL (4.1-5.3) L 05/21/22 13:16 Hgb 10.8 g/dL (11.5-15.3) L 05/21/22 13:16 Hct 32.2 % (37.0-47.0) L 05/21/22 13:16 MCV 91.0 fl (81-99) 05/21/22 13:16 MCH 30.5 pg (28.0-34.0) 05/21/22 13:16 MCHC 33.5 g/dL (30.0-36.0) 05/21/22 13:16 RDW 12.3 % (12.1-15.1) 05/21/22 13:16 Plt Count 215 10^3/cmm (130-400) 05/21/22 13:16 MPV 10.4 fL (7.4-10.4) 05/21/22 13:16 Neut % (Auto) 58.1 % 05/21/22 13:16 Lymph % (Auto) 29.7 % 05/21/22 13:16 Miller % (Auto) 9.5 % 05/21/22 13:16 Eos % (Auto) 1.7 % 05/21/22 13:16 Baso % (Auto) 0.6 % 05/21/22 13:16 Neut # (Auto) 2.69 10^3/uL (1.8-7.7) 05/21/22 13:16 Lymph # (Auto) 1.4 10^3/uL (0.8-4.8) 05/21/22 13:16 Miller # (Auto) 0.4 10^3/uL (0.2-0.9) 05/21/22 13:16 Eos # (Auto) 0.1 10^3/uL (0.0-0.8) 05/21/22 13:16 Baso # (Auto) 0.0 10^3/uL (0.0-0.1) 05/21/22 13:16 Nucleated RBC % (auto) 0 % 05/21/22 13:16 Nucleated RBCs # 0.0 /100WBC 05/21/22 13:16 PT 13.30 SECONDS (12.1-14.9) 05/21/22 13:16 INR 0.98 (0.8-1.2) 05/21/22 13:16 APTT 30.5 SECONDS (23.9-36.7) 05/21/22 13:16 Sodium 139 mmol/L (136-145) 05/21/22 14:23 Potassium 3.6 mmol/L (3.5-5.1) 05/21/22 14:23 Chloride 105 mmol/L (98-107) 05/21/22 14:23 Carbon Dioxide 26 mmol/L (22-29) 05/21/22 14:23 Anion Gap 11.6 (5-19) 05/21/22 14:23 BUN 7 mg/dL (6-20) 05/21/22 14:23 Creatinine 0.5 mg/dL (0.5-0.9) 05/21/22 14:23 GFR Calculation 130.1 mL/min (90-130) H 05/21/22 14:23 Glucose 93 mg/dL (65-115) 05/21/22 14:23 POC Glucose 106 mg/dL (70-110) 05/21/22 13:06 Calculated Osmolality 286 mOsm/kg (285-295) 05/21/22 14:23 Calcium 8.8 mg/dL (8.5-10.5) 05/21/22 14:23 Total Bilirubin 0.3 mg/dL (0.15-1.2) 05/21/22 14:23 AST 15 U/L (0-32) 05/21/22 14:23 ALT 7 U/L (0-33) 05/21/22 14:23 Alkaline Phosphatase 63 IU/L (35-105) 05/21/22 14:23 Total Protein 6.8 g/dL (6.6-8.7) 05/21/22 14:23 Albumin 4.0 g/dL (3.5-5.2) 05/21/22 14:23 Globulin 2.8 g/dL (1.3-4.6) 05/21/22 14:23 Urine Color Colorless (Yellow) 05/21/22 14:23 Urine Appearance Sl hazy (CLEAR) 05/21/22 14:23 Urine pH 8 (5-7) H 05/21/22 14:23 Ur Specific [place] 1.010 (1.005-1.030) 05/21/22 14:23 Urine Protein Neg (Negative) 05/21/22 14:23 Urine Glucose (UA) Norm (Normal) 05/21/22 14:23 Urine Ketones Negative (Negative) 05/21/22 14:23 Urine Blood Neg (Negative) 05/21/22 14:23 Urine Nitrate Negative (Negative) 05/21/22 14:23 Urine Bilirubin Neg (Negative) 05/21/22 14:23 Prot Sulfosalicylic Acd Negative (Negative) 05/21/22 14:23 Urine Urobilinogen Norm mg/dL (Negative) 05/21/22 14:23 Ur Leukocyte Esterase Negative (Negative) 05/21/22 14:23 Urine RBC None /hpf (0-2) 05/21/22 14:23 Urine WBC None /hpf (0-5) 05/21/22 14:23 Ur Squamous Epith Cells 15-25 /hpf (0-5) H 05/21/22 14:23 Amorphous Sediment Not Reportable 05/21/22 14:23 Urine Bacteria 1+ /hpf (NONE) H 05/21/22 14:23 Discharge Plan Discharge Patient Disposition: Home Clinical Impression: TIA (transient ischemic attack) Condition: Stable Prescriptions: New aspirin 81 mg tablet,delayed release (DR/EC) 81 mg PO DAILY Qty: 30 0RF Lipitor 40 mg tablet 40 mg PO DAILY Qty: 30 0RF No Action triamcinolone acetonide 0.5 % Cream 1 applic TOPICAL DAILY PRN (Reason: tick bites) 0RF Tylenol Arthritis Pain 650 mg Tablet Extended Release 650 - 1,300 mg PO Q8H PRN (Reason: Pain) 0RF Benadryl Allergy 25 mg Tablet 25 - 50 mg PO BEDTIME PRN (Reason: Allergy Symptoms) 0RF Discharge Orders: Discharge ED (Routine); Ordered 05/21/22 Ordered By: Manoj Fung Discharge Diet: Usual diet Discharge Activity: Increase activity as tolerated Patient Instructions: Opioid Safety Activity Restrictions/Additional Instructions: This management make arrangements for her to have an outpatient MRI of the head and an echocardiogram. Coding Level of Care Code ED Podiatrist Assistant for Chg Fwd Exam Comprehensive
[2022-05-21 13:08] LABS: Glucose Point of Care 106 mg/dL (70-110)
[2022-05-21 13:33] LABS: Basophils % 0.6 %; Eosinophils # 0.1 10^3/uL (0.0-0.8); Eosinophils % 1.7 %; Hematocrit 32.2 % (37.0-47.0); Hemoglobin 10.8 g/dL (11.5-15.3); Lymphocytes # 1.4 10^3/uL (0.8-4.8); Lymphocytes % 29.7 %; Mean Corpuscular HGB Conc 33.5 g/dL (30.0-36.0); Mean Corpuscular Hemoglobin 30.5 pg (28.0-34.0); Mean Platelet Volume 10.4 fL (7.4-10.4); Monocytes # 0.4 10^3/uL (0.2-0.9); Monocytes % 9.5 %; Neutrophils # 2.69 10^3/uL (1.8-7.7); Neutrophils % 58.1 %; Nucleated Red Blood Cells % 0 %; Platelet Count 215 10^3/cmm (130-400); Red Blood Count 3.54 10^6/uL (4.1-5.3); Red Cell Distribution Width 12.3 % (12.1-15.1); White Blood Count 4.6 10^3/uL (4.0-10.0)
--- NOTE | 2022-05-21 13:35 | PC.PHAR ---
pt state she takes no rx medications-pt states she uses a triamcinolone cream prn pt states she thinks thats the name of the cream she uses-[facility] wp states they havent filled any creams or ointments for the pt-
--- NOTE | 2022-05-21 13:39 | PC.NURSE ---
PT PLACED ON CONTINUOUS SPO2, NIBP, AND CM.
[2022-05-21 13:40] LABS: INR 0.98 (0.8-1.2)
[2022-05-21 13:41] LABS: Partial Thromboplastin Time 30.5 SECONDS (23.9-36.7)
--- NOTE | 2022-05-21 14:26 | CT_ITS ---
WS: [id number] CTA HEAD AND NECK TECHNIQUE: Contrast enhanced CTA of the head and neck with coronal and sagittal reformatted images an d maximum intensity projection (MIP) images. NASCET criteria utilized. CLINICAL INFORMATION: TIA COMPARISON: None. DLP: 481.[address] scans at [facility] use at least one of these dose optimization techniques: automated e xposure control; mA and/or kV adjustment per patient size (includes targeted exams where dose is matc hed to clinical indication); or iterative reconstruction. FINDINGS: RIGHT: RIGHT common carotid artery is patent. No significant RIGHT ICA stenosis. ICA is patent to the skull base. Tortuous RIGHT cervical ICA. LEFT: LEFT common carotid artery is patent. No significant LEFT ICA stenosis. LEFT ICA is patent to t he skull base. No significant LEFT ICA stenosis. INTRACRANIAL CTA: Both vertebral arteries are patent. Proximal basilar artery is patent. Normal vascularity to the OFFICIAL GREETER territory bilaterally. No flow-limiting stenosis or aneurysm. Both ICAs are patent to the skull base. Normal vascularity to the RADHA and MCA territories bilaterally. No flow-limiting stenosis. Straightening of the normal cervical lordosis. Slight anterolisthesis C3 on C4. Disc space narrowing C5-C6. Mild spondylitic changes cervical spine. CT/CT angio headneck* [id number] IMPRESSION: 1. No significant ICA stenosis bilaterally. 2. Normal intracranial CTA. No flow-limiting stenosis. 3. No other acute findings.
[2022-05-21 14:52] LABS: Add Urine Culture? No; Add Urine Microscopic? YES; Bacteria Urine 1+ /hpf; Bilirubin Urine Neg (Negative); Blood Urine Neg (Negative); Glucose Urine UA Norm (Normal); Ketones Urine Negative (Negative); Leukocyte Esterase Urine Negative (Negative); Nitrate Urine Negative (Negative); Protein Urine Neg (Negative); Squamous Epithelial Cell Urine 15-25 /hpf (0-5); Sulfosalicylic Acid Urine Negative (Negative); Urine Appearance SL Hazy (CLEAR); Urine Color Colorless (Yellow); Urobilinogen Urine Norm (Negative); pH Urine 8 (5-7)
[2022-05-21] MEDS: iohexol 350 mg/mL 100 mL Btl IV (15:13)
[2022-05-21 15:30] LABS: Alanine Aminotransferase 7 U/L (0-33); Alkaline Phosphatase 63 IU/L (35-105); Anion Gap 11.6 (5-19); Aspartate Amino Transferase 15 U/L (0-32); Blood Urea Nitrogen 7 mg/dL (6-20); Calcium 8.8 mg/dL (8.5-10.5); Carbon Dioxide 26 mmol/L (22-29); Chloride 105 mmol/L (98-107); Globulin 2.8 g/dL (1.3-4.6); Glomerular Filtration Rate 130.1 mL/min (90-130); Glucose 93 mg/dL (65-115); Osmolality Calculated 286 mOsm/kg (285-295); Potassium 3.6 mmol/L (3.5-5.1); Sodium 139 mmol/L (136-145); Total Bilirubin 0.3 mg/dL (0.15-1.2); Total Protein 6.8 g/dL (6.6-8.7)
--- NOTE | 2022-05-22 10:18 | DCPLANNER ---
Addendum entered by Khloe Castellon 06/07/22 10:24: Patient had a follow up appointment scheduled with neurology - patient did attend appointment. Addendum entered by Khloe Castellon 05/30/22 11:57: Patient has a follow up appointment scheduled for Saturday, July 02, 2022 at 2:45 with Chapito Warner. Clinic will contact patient with appointment information. Original Note: chef kitchen manager had message to schedule a follow up appointment for patient with neurology. chef kitchen manager sent patients information to the front office staff at neurology. Patients information will be printed and reviewed. Clinic will call patient with appointment information.
--- NOTE | 2022-05-22 11:05 | DCPLANNER ---
Addendum entered by Khloe Castellon 07/27/22 11:00: Patient also had a follow up appointment with [facility] Family [facility] with Dr. Avila to establish care after the MRI - patient did attend appointment. Addendum entered by Khloe Castellon 05/30/22 11:45: Patient had an MRI scheduled for 05.17.22 - patient did attend appointment. Original Note: fire investigation manager had message to schedule an outpatient MRI and echo cardiogram for patient. Patient wants tests ordered did not have a primary care physician. fire investigation manager called [facility], gave clinic patients information a follow up appointment was scheduled for Sunday, June 12, 2022 at 10:[address] Palafox. fire investigation manager called patient and gave patient the appointment information. fire investigation manager faxed signed order for MRI and echo to centralized scheduling, who will call patient with appointment information.
== END 2022-05-21 18:09 | disposition home or self-care (01) ==
PROVIDERS: Emergency Medicine; Emergency Provider Family Medicine
DX: G45.9 Transient cerebral ischemic attack, unspecified (principal)
CPT/HCPCS: 36416; 70450; 70496; 70498; 80053; 81001; 82962; 85025; 85610; 85730; 93005; 99285; Q9967

== ENCOUNTER → 2022-05-24 13:58 | Outpatient (BNVA) | payer MEDICAID, SELFPAY | PROVIDERS: Referring Provider Family Medicine; Visit Provider Specialist | DX: G56.01 Carpal tunnel syndrome, right upper limb (principal) | CPT/HCPCS: 95910; 95911 ==

== ENCOUNTER → 2022-05-30 12:52 | Outpatient (BNVA) | payer MEDICAID, SELFPAY | PROVIDERS: Visit Provider Specialist | DX: M25.512 Pain in left shoulder (principal) | CPT/HCPCS: 99213 ==

== ENCOUNTER → 2022-06-01 16:02 | Outpatient (BNVA) | payer MEDICAID, SELFPAY | PROVIDERS: PCP Family Medicine; Referring Provider Family Medicine; Visit Provider Nurse Practitioner | DX: Z86.73 Personal history of transient ischemic attack (TIA), and cerebral infarction without residual deficits | CPT/HCPCS: 36415; 80061; 83036; 99204 ==

== ENCOUNTER → 2022-06-12 11:10 | Outpatient (BNVA) | payer MEDICAID, SELFPAY | PROVIDERS: PCP Family Medicine; Visit Provider Family Medicine | DX: D64.9 Anemia, unspecified (principal); G45.9 Transient cerebral ischemic attack, unspecified; R00.1 Bradycardia, unspecified | CPT/HCPCS: 80048; 84439; 84443; 85651; 86140 ==

== ENCOUNTER → 2022-06-22 12:39 | Outpatient (BNVA) | payer MEDICAID, SELFPAY | PROVIDERS: PCP Family Medicine; Referring Provider Specialist; Visit Provider Specialist | DX: M25.512 Pain in left shoulder (principal); G56.01 Carpal tunnel syndrome, right upper limb | CPT/HCPCS: 95860 ==

== ENCOUNTER → 2022-08-01 09:25 | Outpatient (BNVA) | payer MEDICAID, SELFPAY | PROVIDERS: PCP Family Medicine; Visit Provider Specialist | DX: M25.512 Pain in left shoulder (principal); M54.2 Cervicalgia | CPT/HCPCS: 99214 ==

== ENCOUNTER → 2022-08-09 15:07 | Outpatient (BNVA) | payer MEDICAID, SELFPAY | PROVIDERS: PCP Family Medicine; Referring Provider Specialist; Visit Provider Orthopaedic Surgery | DX: M47.12 Other spondylosis with myelopathy, cervical region (principal); M48.02 Spinal stenosis, cervical region | CPT/HCPCS: 72050; 99203; 99204 ==

== ENCOUNTER 2022-08-21 09:50 | Outpatient (CLI) | payer MEDICAID, SELFPAY ==
--- NOTE | 2022-08-21 10:15 | MR_ITS ---
WS: [id number] MRI CERVICAL SPINE NONCONTRAST HISTORY: pain and numbness COMPARISON: Radiographs 08/09/2022 Technique: Multiplanar, multisequence noncontrast imaging of the cervical spine. C5 retrolisthesis by 2.7 mm. The remaining cervical vertebrae are normally aligned. No fractures or m arrow edema. Very mild disc space narrowing and desiccation throughout the cervical spine. Signal within the cervical cord is normal. Visualized posterior fossa is unremarkable. Craniocervical junction, C1 and C2 relationship, odontoid process and soft tissues are normal. C2-C3: Small central disc protrusion and osteophytes. No stenosis. C3-C4: Mild bilateral facet joint arthritis and small foraminal osteophytes. Very mild LEFT foraminal stenosis. C4-C5: Mild bilateral facet joint arthritis, RIGHT greater than LEFT. Small foraminal osteophytes. No stenosis. C5-C6: Retrolisthesis of C5 with a moderate-sized LEFT disc osteophyte complex and facet arthritis. M ild osteophytic ridging around the vertebral body and disc bulging. There is mild central and RIGHT f oraminal stenosis with moderate LEFT foraminal stenosis due to the disc osteophyte contact was slight ly greater encroachment in the proximal LEFT foramen. Bilateral facet joint arthritis. C6-C7: Diffuse osteophytic ridging. No focal disc protrusion. Only mild facet arthritis. C7-T1: No stenosis. Paraspinal soft tissue are normal. MR/MR cervical spin wo con* [id number] IMPRESSION: 1. Moderate LEFT foraminal stenosis due to combination of disc and osteophyte disease, retrolisthesis of C5 and facet arthritis at C5-6. 2. C5 retrolisthesis by 2.7 mm. 3. Small central disc protrusion at C2-3. 4. Mild LEFT foraminal stenosis due to osteophyte and facet disease at C3-4. 5. Bilateral facet joint arthritis is mild to moderate. Most significant at C5 -6.
== END 2022-08-21 09:51 | disposition home or self-care (01) ==
LOC: RAD 09:53
PROVIDERS: PCP Family Medicine; Visit Provider Orthopaedic Surgery
DX: R20.0 Anesthesia of skin (principal); R20.2 Paresthesia of skin; M25.78 Osteophyte, vertebrae; M48.02 Spinal stenosis, cervical region; M50.21 Other cervical disc displacement, high cervical region; M47.12 Other spondylosis with myelopathy, cervical region
CPT/HCPCS: 72141; 99214

== ENCOUNTER → 2022-11-07 16:19 | Outpatient (BNVA) | payer MEDICAID, SELFPAY | PROVIDERS: PCP Family Medicine; Visit Provider Family Medicine | DX: R68.89 Other general symptoms and signs (principal); N92.1 Excessive and frequent menstruation with irregular cycle; N92.0 Excessive and frequent menstruation with regular cycle; J01.90 Acute sinusitis, unspecified; B96.89 Other specified bacterial agents as the cause of diseases classified elsewhere | CPT/HCPCS: 87400 ==

== ENCOUNTER 2022-11-26 20:11 | Emergency (ER) | payer MEDICAID, SELFPAY ==
[2022-11-26 20:31] VITALS: BP 151/74; PULSE 93; RESP 16; TEMP 36.3; O2SAT 100
[2022-11-26 21:04] LABS: Basophils # 0.1 10^3/uL (0.0-0.1); Basophils % 0.5 %; Eosinophils # 0.1 10^3/uL (0.0-0.8); Eosinophils % 0.5 %; Hematocrit 26.2 % (37.0-47.0); Hemoglobin 8.2 g/dL (11.5-15.3); Lymphocytes # 1.3 10^3/uL (0.8-4.8); Lymphocytes % 11.5 %; Mean Corpuscular HGB Conc 31.3 g/dL (30.0-36.0); Mean Corpuscular Hemoglobin 26.8 pg (28.0-34.0); Mean Corpuscular Volume 85.6 fl (81-99); Mean Platelet Volume 9.8 fL (7.4-10.4); Monocytes # 0.9 10^3/uL (0.2-0.9); Monocytes % 7.7 %; Neutrophils # 8.82 10^3/uL (1.8-7.7); Neutrophils % 79.4 %; Nucleated Red Blood Cells % 0 %; Platelet Count 307 10^3/cmm (130-400); Red Blood Count 3.06 10^6/uL (4.1-5.3); Red Cell Distribution Width 12.6 % (12.1-15.1); White Blood Count 11.1 10^3/uL (4.0-10.0)
[2022-11-26 21:09] LABS: HCG, Serum Qual Negative (Negative)
[2022-11-26 21:19] LABS: Alanine Aminotransferase 6 U/L (0-33); Albumin Level 4.2 g/dL (3.5-5.2); Alkaline Phosphatase 56 U/L (35-105); Anion Gap 12.7 (5-19); Aspartate Amino Transferase 13 U/L (0-32); Blood Urea Nitrogen 9 mg/dL (6-20); Calcium 8.5 mg/dL (8.5-10.5); Carbon Dioxide 25 mmol/L (22-29); Chloride 106 mmol/L (98-107); Globulin 3.2 g/dL (1.3-4.6); Glomerular Filtration Rate 87.9 mL/min (90-130); Glucose 99 mg/dL (65-115); Lipase 36 U/L (13-60); Osmolality Calculated 289 mOsm/kg (285-295); Potassium 3.7 mmol/L (3.5-5.1); Sodium 140 mmol/L (136-145); Total Bilirubin 0.2 mg/dL (0.15-1.2); Total Protein 7.4 g/dL (6.6-8.7)
[2022-11-26 21:45] LABS: Specific Gravity, Urine 1.015 (1.005-1.030); Urine Appearance SL Hazy (CLEAR); Urine Color Yellow (Yellow); pH Urine 8 (5-7)
[2022-11-26 21:46] LABS: Add Urine Culture? No; Add Urine Microscopic? YES; Bacteria Urine TRACE /hpf; Bilirubin Urine Neg (Negative); Blood Urine 3+ (Negative); Glucose Urine UA Norm (Normal); Ketones Urine Negative (Negative); Leukocyte Esterase Urine Negative (Negative); Nitrate Urine Negative (Negative); Protein Urine Neg (Negative); RBC Urine TOO NUMEROUS TO CNT /hpf (0-2); Squamous Epithelial Cell Urine 0-4 /hpf (0-5); Urobilinogen Urine Norm (Negative); WBC Urine 0-4 /hpf (0-5)
--- NOTE | 2022-11-26 22:33 | CTR_ITS ---
PROCEDURE INFORMATION: Exam: CT Abdomen And Pelvis With Contrast Exam date and time: 11/26/2022 11:05 PM Age: 52 years old Clinical indication: Abdominal pain; Localized; Right lower quadrant (rlq); Patient HX: Rlq pain with nausea; Additional info: Abd pain TECHNIQUE: Imaging protocol: Computed tomography of the abdomen and pelvis with contrast. Radiation optimization: All CT scans at this facility use at least one of these dose optimization techniques: automated exposure control; mA and/or kV adjustment per patient size (includes targeted exams where dose is matched to clinical indication); or iterative reconstruction. Contrast material: OMNI 350; Contrast volume: 100 ml; Contrast route: INTRAVENOUS (IV); COMPARISON: CR XR pelvis 1-2V* [id number] 09/16/2017 7:18 PM RADIATION DOSE METRICS: Total DLP (mGy-cm): 591.03 FINDINGS: Liver: Normal. No mass. Gallbladder and bile ducts: Normal. No calcified stones. No ductal dilation. Pancreas: Normal. No ductal dilation. Spleen: Normal. No splenomegaly. Adrenal glands: Normal. No mass. Kidneys and ureters: Normal. No hydronephrosis. Stomach and bowel: Prominent fluid in the small bowel without dilation suggestive of an enteritis. Constipation. Appendix: No evidence of appendicitis. Intraperitoneal space: Unremarkable. No free air. No significant fluid collection. Vasculature: Unremarkable. No abdominal aortic aneurysm. Lymph nodes: Unremarkable. No enlarged lymph nodes. Urinary bladder: Unremarkable as visualized. Reproductive: Fluid in the uterine cavity likely related to menstrual status. Bones/joints: Unremarkable. No acute fracture. Soft tissues: Unremarkable. CT/CT abdomen pelvis w con* [id number] IMPRESSION: 1. Prominent fluid in the small bowel without dilation suggestive of an enteritis. 2. Constipation. 3. Fluid in the uterine cavity likely related to menstrual status.
--- NOTE | 2022-11-26 22:34 | ED_ITS ---
HPI - Abdominal Pain General: Chief Complaint: Abdominal Pain Stated Complaint: abdomen pain, cramps Time Seen by Provider: 11/26/22 22:24 Source: patient Mode of arrival: ambulatory Limitations: no limitations History of Present Illness: 52-year-old female states she been having abdominal pain since this morning. She states in her right upper quadrant and radiates to her right flank states pain is sharp in nature rates it a 4 out of 10 denies any worsening proving factors. She denies any fevers. She is currently on her menstruation. Associated Symptoms: Denies chills, dysuria and fever(s) Related Data: Date of Last Menstrual Period: 10/01/21 Review of Systems Const: Denies: fever(s), chills, body aches or change in appetite Eyes: Denies: blurry vision or eye discomfort ENMT: Denies: throat pain or dental pain Card: Denies: chest pain Resp: Denies: dyspnea GI: Reports: abdominal pain : Denies: dysuria Musc: Denies: neck pain or back pain Skin/Breast: Denies: rash Neuro: Denies: headache(s) Psych: Denies: depression Steven/Lymph: Denies: easy bruising All/Imm: Denies: urticaria PFSH ED PFSH: Medical History No pertinent past medical history TIA (transient ischemic attack) Surgical History No pertinent past surgical history Family History Denies family history of Colon cancer Ovarian cancer Diabetes Heart disease Hypercholesteremia Breast cancer Hypertension Uterine cancer Thyroid disease Stroke Female Reproductive History: Date of last menstrual period: 10/01/21 Spontaneous abortions: No Physical Exam Const: COMMON NORMALS: no acute distress, patient oriented x3 and healthy appearing HENMT: COMMON NORMALS: normocephalic and atraumatic HEAD & SCALP: normocephalic and atraumatic Eye: COMMON NORMALS: Equal, round and reactive pupils present and EOMs intact bilaterally PUPIL: Yes Equal, round and reactive pupils present Neck/C-Spine: COMMON NORMALS: full ROM and supple Chest: COMMONS NORMALS: normal inspection of the chest and normal palpation of entire chest wall Resp: COMMON NORMALS: normal respiratory effort, No retractions, No use of accessory muscles and clear to auscultation bilaterally AUSCULTATION: clear to auscultation bilaterally Cardio: COMMON NORMALS: regular rate, regular rhythm and No murmurs present (Cardio) RATE: regular rate RHYTHM: regular rhythm GI: COMMON NORMALS: Normal to inspection, nondistended, normoactive bowel sounds present, Soft to palpation and no masses PALPATION: Yes Soft to palpation and Yes Tenderness to palpation present (GI) Details: RLQ Extremity: COMMON NORMALS: normal to inspection and full ROM Neuro: COMMON NORMALS: patient oriented x3, moves all extremities and no focal motor deficits Psych: COMMON NORMALS: mental status grossly normal, Normal thought process present and cooperative THOUGHT PROCESS: Normal thought process present Skin: COMMON NORMALS: no rashes or lesions noted and no wounds GENERAL SKIN EXAM: no rashes or lesions noted Course Vital Signs: Vital signs: Vital Signs Temperature 97.4 F L 11/26/22 20:31 Pulse Rate 93 11/26/22 20:31 Respiratory Rate 16 11/26/22 20:31 Blood Pressure 151/74 11/26/22 20:31 Pulse Oximetry 100 11/26/22 20:31 Oxygen Delivery Me thod 11/26/22 20:31 MDM - Abdominal Pain Medical Decision Making Patient presents with abdominal pains been a cramping type pain CT showed an enteritis she is well-appearing here exam is benign we will start her on Zofran along with the Bentyl she is to follow-up with her PCP and return if worsening she understands agrees to plan. Lab Data 11/26/22 20:43 11/26/22 20:43 Labs/Radiology: Radiology Impressions Abdomen/Pelvis CT 11/26/22 22:33 IMPRESSION: 1. Prominent fluid in the small bowel without dilation suggestive of an enteritis. 2. Constipation. 3. Fluid in the uterine cavity likely related to menstrual status. Laboratory Results WBC 11.1 10^3/uL (4.0-10.0) H 11/26/22 20:43 RBC 3.06 10^6/uL (4.1-5.3) L 11/26/22 20:43 Hgb 8.2 g/dL (11.5-15.3) L 11/26/22 20:43 Hct 26.2 % (37.0-47.0) L 11/26/22 20:43 MCV 85.6 fl (81-99) 11/26/22 20:43 MCH 26.8 pg (28.0-34.0) L 11/26/22 20:43 MCHC 31.3 g/dL (30.0-36.0) 11/26/22 20:43 RDW 12.6 % (12.1-15.1) 11/26/22 20:43 Plt Count 307 10^3/cmm (130-400) 11/26/22 20:43 MPV 9.8 fL (7.4-10.4) 11/26/22 20:43 Neut % (Auto) 79.4 % 11/26/22 20:43 Lymph % (Auto) 11.5 % 11/26/22 20:43 Finney % (Auto) 7.7 % 11/26/22 20:43 Eos % (Auto) 0.5 % 11/26/22 20:43 Baso % (Auto) 0.5 % 11/26/22 20:43 Neut # (Auto) 8.82 10^3/uL (1.8-7.7) H 11/26/22 20:43 Lymph # (Auto) 1.3 10^3/uL (0.8-4.8) 11/26/22 20:43 Finney # (Auto) 0.9 10^3/uL (0.2-0.9) 11/26/22 20:43 Eos # (Auto) 0.1 10^3/uL (0.0-0.8) 11/26/22 20:43 Baso # (Auto) 0.1 10^3/uL (0.0-0.1) 11/26/22 20:43 Nucleated RBC % (auto) 0 % 11/26/22 20:43 Nucleated RBCs # 0.0 /100WBC 11/26/22 20:43 Sodium 140 mmol/L (136-145) 11/26/22 20:43 Potassium 3.7 mmol/L (3.5-5.1) 11/26/22 20:43 Chloride 106 mmol/L (98-107) 11/26/22 20:43 Carbon Dioxide 25 mmol/L (22-29) 11/26/22 20:43 Anion Gap 12.7 (5-19) 11/26/22 20:43 BUN 9 mg/dL (6-20) 11/26/22 20:43 Creatinine 0.7 mg/dL (0.5-0.9) 11/26/22 20:43 GFR Calculation 87.9 mL/min (90-130) L 11/26/22 20:43 Glucose 99 mg/dL (65-115) 11/26/22 20:43 Calculated Osmolality 289 mOsm/kg (285-295) 11/26/22 20:43 Calcium 8.5 mg/dL (8.5-10.5) 11/26/22 20:43 Total Bilirubin 0.2 mg/dL (0.15-1.2) 11/26/22 20:43 AST 13 U/L (0-32) 11/26/22 20:43 ALT 6 U/L (0-33) 11/26/22 20:43 Alkaline Phosphatase 56 U/L (35-105) 11/26/22 20:43 Total Protein 7.4 g/dL (6.6-8.7) 11/26/22 20:43 Albumin 4.2 g/dL (3.5-5.2) 11/26/22 20:43 Globulin 3.2 g/dL (1.3-4.6) 11/26/22 20:43 Lipase 36 U/L (13-60) 11/26/22 20:43 HCG, Qual Negative (Negative) 11/26/22 20:43 Urine Color Yellow (Yellow) 11/26/22 20:43 Urine Appearance Sl hazy (CLEAR) A 11/26/22 20:43 Urine pH 8 (5-7) H 11/26/22 20:43 Ur Specific [place] 1.015 (1.005-1.030) 11/26/22 20:43 Urine Protein Neg (Negative) 11/26/22 20:43 Urine Glucose (UA) Norm (Normal) 11/26/22 20:43 Urine Ketones Negative (Negative) 11/26/22 20:43 Urine Blood 3+ (Negative) H 11/26/22 20:43 Urine Nitrate Negative (Negative) 11/26/22 20:43 Urine Bilirubin Neg (Negative) 11/26/22 20:43 Urine Urobilinogen Norm mg/dL (Negative) 11/26/22 20:43 Ur Leukocyte Esterase Negative (Negative) 11/26/22 20:43 Urine RBC Too numerous to cnt /hpf (0-2) H 11/26/22 20:43 Urine WBC 0-4 /hpf (0-5) H 11/26/22 20:43 Ur Squamous Epith Cells 0-4 /hpf (0-5) H 11/26/22 20:43 Amorphous Sediment Not Reportable 11/26/22 20:43 Urine Bacteria Trace /hpf (NONE) 11/26/22 20:43 Discharge Plan Discharge Patient Disposition: Home Clinical Impression: Abdominal pain Condition: Stable Prescriptions: New ondansetron 4 mg tablet,disintegrating 4 mg PO Q6H PRN (Reason: nausea and vomiting) Qty: 14 0RF dicyclomine 20 mg tablet 20 mg PO TID PRN (Reason: abdominal pain) Qty: 14 0RF No Action tizanidine 4 mg tablet 4 mg PO Q8H PRN (Reason: muscle spasticity) Qty: 60 2RF triamcinolone acetonide 0.5 % Cream 1 applic TOPICAL DAILY PRN (Reason: tick bites) Benadryl Allergy 25 mg Tablet 25 - 50 mg PO BEDTIME PRN (Reason: Allergy Symptoms) Discharge Orders: Discharge ED (Routine); Ordered 11/26/22 Ordered By: Vickie Menjivar Referrals: Jesse Avila DO [Primary Care Provider] - 1-3 days Discharge Diet: Advance as tolerated Discharge Activity: Resume usual activity Patient Instructions: Abdominal Pain (ED) Coding Level of Care Code ED Director Of Marketing And Promotions for Chg Fwd Exam Comprehensive
[2022-11-26 22:37] VITALS: BP 119/70; PULSE 66; RESP 18; O2SAT 100
[2022-11-26] MEDS: morphine 4 mg/mL SDV 1 mL IVP (22:51)
[2022-11-26] MEDS: ondansetron 2 mg/ML SDV 2 mL 4 MG IVP (22:52)
[2022-11-26] MEDS: iohexol 350 mg/mL 500 mL Btl (per mL) IV (23:06)
[2022-11-26 23:54] VITALS: BP 119/70; PULSE 76; RESP 18; O2SAT 100
== END 2022-11-26 23:54 | disposition home or self-care (01) ==
PROVIDERS: Emergency Provider Emergency Medicine; PCP Family Medicine
DX: R10.11 Right upper quadrant pain (principal); K59.00 Constipation, unspecified; Z86.73 Personal history of transient ischemic attack (TIA), and cerebral infarction without residual deficits
CPT/HCPCS: 74177; 80053; 81001; 83690; 84703; 85025; 96374; 96375; 99285; J2270; J2405; Q9967

== ENCOUNTER → 2022-12-10 13:18 | Outpatient (BNVA) | payer MEDICAID, SELFPAY | PROVIDERS: PCP Family Medicine; Visit Provider Nurse Practitioner Women's Health | DX: N93.9 Abnormal uterine and vaginal bleeding, unspecified (principal); D25.9 Leiomyoma of uterus, unspecified | CPT/HCPCS: 76830 ==

== ENCOUNTER → 2022-12-31 13:49 | Outpatient (BNVA) | payer MEDICAID, SELFPAY | PROVIDERS: PCP Family Medicine; Visit Provider Nurse Practitioner Women's Health | DX: N93.9 Abnormal uterine and vaginal bleeding, unspecified (principal); N92.1 Excessive and frequent menstruation with irregular cycle | CPT/HCPCS: 87624; 88305 ==

== ENCOUNTER → 2023-01-17 11:00 | Outpatient (BNVA) | payer MEDICAID, SELFPAY | PROVIDERS: PCP Family Medicine; Visit Provider Nurse Practitioner Women's Health | DX: Z01.419 Encounter for gynecological examination (general) (routine) without abnormal findings (principal); R87.615 Unsatisfactory cytologic smear of cervix | CPT/HCPCS: 87624 ==

== ENCOUNTER 2023-08-14 11:46 | Outpatient (CLI) | payer MEDICAID, SELFPAY ==
--- NOTE | 2023-08-14 11:56 | XRR_ITS ---
PROCEDURE INFORMATION: Exam: XR Left Hip Exam date and time: 08/14/2023 12:03 PM Age: 53 years old Clinical indication: Injury or trauma; Fall; Blunt trauma (contusions or hematomas); Left; Injury details: Fell 10 days ago, lt hip and pelvis pain; Additional info: Fall, left hip pelvis pain, to include the pelvis TECHNIQUE: Imaging protocol: Radiologic exam of the left hip. Views: 2 or 3 views hip with pelvis when performed. COMPARISON: CT abdomen pelvis w con* [id number] 11/26/2022 11:05 PM FINDINGS: Bones/joints: Spondylosis at the lumbosacral junction. Otherwise, unremarkable. Soft tissues: Unremarkable. XR/XR hip LT 2-3V wo/w pel* [id number] IMPRESSION: No acute pathology.
== END 2023-08-14 11:47 | disposition home or self-care (01) ==
PROVIDERS: PCP Family Medicine; Visit Provider Family Medicine
DX: M25.552 Pain in left hip (principal); W19.XXXA Unspecified fall, initial encounter
CPT/HCPCS: 73502

== ENCOUNTER 2023-10-10 15:53 | Outpatient (CLI) | payer MEDICAID, SELFPAY ==
--- NOTE | 2023-10-10 16:00 | MM_ITS ---
WS: [id number] BILATERAL SCREENING DIGITAL TOMOSYNTHESIS MAMMOGRAM WITH CAD HISTORY: Z12.39 - Encounter for other screening for malignant neop... COMPARISON: 01/12/2020 Bilateral CC and MLO views with tomosynthesis and synthetic mammography submitted. Computer aided det ection analyzed. Breast composition: The breasts are heterogeneously dense, which may obscure small masses. No suspici ous masses, microcalcifications or architectural distortion. IMPRESSION: MM/[place] [id number] BI-RADS: 1-Negative FOLLOW UP: 1 Year Follow-up
== END 2023-10-10 15:54 | disposition home or self-care (01) ==
LOC: MOBLMAM 16:03
PROVIDERS: PCP Family Medicine; Visit Provider Family Medicine
DX: Z12.31 Encounter for screening mammogram for malignant neoplasm of breast (principal)
CPT/HCPCS: 77063; 77067

== ENCOUNTER 2024-02-28 20:37 | Emergency (ER) | payer MEDICAID, SELFPAY ==
[2024-02-28 20:46] VITALS: BP 164/91; PULSE 55; RESP 16; TEMP 36.6; O2SAT 98
[2024-02-28] MEDS: diphenhydrAMINE 50 mg/mL SDV 1mL IM (21:54)
[2024-02-28] MEDS: dexamethasone 10 mg/mL INJ 8 MG IM (21:55)
--- NOTE | 2024-02-28 22:49 | ED_ITS ---
Documented by User: DALLIN Petersen 02/28/24 22:55 HPI - Skin/Abscess/Foreign Bdy General: Chief complaint: Skin/Abscess/Foreign Body Stated complaint: rash Time Seen by Provider: 02/28/24 21:05 Source: patient Mode of arrival: ambulatory Limitations: no limitations History of Present Illness: Patient is a 53-year-old female presenting to the emergency department complaining of rash to right lateral neck onset last couple days. Patient notes she noticed the rash after she was mowing outside, and notes that there has been a significant amount of pollen at her residence. The rash began as a couple of red streaks, but has since become more itchy and swollen, and now has spread to the left side of her neck and down to her chest. She reports using topical hy drocortisone cream that made her symptoms worse. She also took a Benadryl that did not help. She is unsure what she might of coming to contact with. She is denying any breathing difficulties, swelling of her tongue lips or throat, fevers, pain, or any other symptoms. No new recent medications. MD complaint: rash Onset (ago): day(s) Location: neck Severity: moderate Relieving factors: none Associated symptoms: Reports itching; Deny chills, fever(s), nausea or vomiting Treatments prior to arrival: OTC topical medication and Benadryl Review of Systems General: Reports: 10 or more systems reviewed and unremarkable except in HPI and below Const: Denies: fever(s), chills or fatigue Eyes: Denies: change in vision ENMT: Denies: throat pain, uvular edema, ear or mastoid pain or nasal discharge Card: Denies: chest pain, palpitations, swelling of feet/ankles or lightheadedness Resp: Denies: dyspnea, productive cough or wheezing GI: Denies: abdominal pain, nausea, vomiting, diarrhea or constipation : Denies: flank pain, difficulty voiding, dysuria or urinary frequency Musc: Denies: neck pain, back pain or joint pain Skin/Breast: Reports: rash and pruritus Neuro: Denies: headache(s), numbness in extremities or weakness in extremities PFSH ED PFSH: Medical History TIA (transient ischemic attack) No pertinent past medical history Surgical History No pertinent past surgical history Family History Denies family history of Colon cancer Ovarian cancer Diabetes Heart disease Hypercholesteremia Breast cancer Hypertension Uterine cancer Thyroid disease Stroke Social History Substance/Drug Use: never Female Reproductive History: Spontaneous abortions: No Physical Exam Const: COMMON NORMALS: no acute distress, patient oriented x3 and no limitations GENERAL APPEARANCE: cooperative, comfortable and well developed ORIENTATION/CONSCIOUSNESS: Yes awake, Yes oriented to person, Yes oriented to place and Yes oriented to time HENMT: COMMON NORMALS: normocephalic, atraumatic, hearing grossly normal bilaterally, external ears normal, Normal external nose present and Normal nasal mucous membranes and turbinates present HEAD & SCALP: normocephalic and atraumatic FACE & SINUS: normal facial exam, sinuses nontender and face symmetric NOSE: Normal external nose present, Normal nares present, No nasal polyps present and Normal nasal mucous membranes and turbinates present EXTERNAL EAR: Yes external ears normal MOUTH: Normal oral and palatal mucosa present, lip normal and tongue normal THROAT: posterior oropharynx normal and uvula midline; no uvular edema Eye: COMMON NORMALS: Equal, round and reactive pupils present, EOMs intact bilaterally and conjunctivae normal CONJUNCTIVA: Yes conjunctivae normal PUPIL: Yes Equal, round and reactive pupils present Neck/C-Spine: COMMON NORMALS: full ROM, supple and no JVD Resp: COMMON NORMALS: normal respiratory effort, No retractions, No use of accessory muscles and clear to auscultation bilaterally AUSCULTATION: clear to auscultation bilaterally Cardio: COMMON NORMALS: no JVD, regular rate, regular rhythm, No clicks present (Cardio), No murmurs present (Cardio) and No rub (Cardio) RATE: regul ar rate RHYTHM: regular rhythm Extremity: COMMON NORMALS: normal to inspection, full ROM and capillary refill normal Neuro: COMMON NORMALS: patient oriented x3, moves all extremities, no focal motor deficits and no sensory deficits noted SENSORIUM/ORIENTATION: Yes oriented to person, Yes oriented to place and Yes oriented to time Psych: COMMON NORMALS: mental status grossly normal and Normal thought process present THOUGHT PROCESS: Normal thought process present Skin: NARRATIVE SKIN EXAM: Rash noted to the right lateral neck, appears maculopapular without vesicles. A few red streaks noted to the left lateral neck. The rash extends to the right clavicle. There is lichenification present from scratching. No bleeding or oozing. Course Vital Signs: Vital signs: Vital Signs Temperature 97.8 F 02/28/24 20:46 Pulse Rate 55 L 02/28/24 20:46 Respiratory Rate 16 02/28/24 20:46 Blood Pressure 164/91 02/28/24 20:46 Pulse Oximetry 98 02/28/24 20:46 Oxygen Delivery Me thod Room Air 02/28/24 20:46 MDM - Skin/Abscess/Foreign Bdy Medicial Decision Making This patient was seen due to a rash for the past couple of days that seem to be worsening. Patient was not getting relief from [id number] hydrocortisone and Benadryl. She was not reporting to me any breathing difficulties or oral swelling. Her main concern was the itchiness and the fact that she does not know what could have caused it. Examination did reveal a rash to the right lateral neck extending down towards the chest. Appearance was that of an allergic contact dermatitis of unknown cause. Patient given a shot of Decadron and Benadryl in the ED, and will be sent home with prescriptions for prednisone and Pepcid to treat her allergic symptoms. She is encouraged to continue taking Benadryl at home as needed. I did have a thorough conversation with her in regards to if she develops any breathing difficulties or oropharyngeal swelling. She agrees with this plan. No radiology studies performed this visit Discharge Plan Discharge Patient Disposition: Home Clinical Impression: Allergic contact dermatitis Qualifiers: Contact dermatitis trigger: unspecified trigger Qualified Code(s): L23.9 - Allergic contact dermatitis, unspecified cause Condition: Stable Prescriptions: New Pepcid 20 mg tablet 20 mg PO BID 10 Days Qty: 20 0RF No Action tizanidine 4 mg tablet 4 mg PO Q8H PRN (Reason: muscle spasticity) Qty: 60 2RF hydrocodone-acetaminophen 5-325 mg tablet 1 tab PO Q8H PRN (Reason: pain) 7 Days Qty: 20 0RF Benadryl Allergy 25 mg Tablet 25 - 50 mg PO BEDTIME PRN (Reason: Allergy Symptoms) Discharge Orders: Discharge ED (Routine); Ordered 02/28/24 Ordered By: Cruz Jaimes Referrals: Jesse Avila DO [Primary Care Provider] - Discharge Diet: Usual diet Discharge Activity: Increase activity as tolerated Patient Instructions: Contact Dermatitis (ED) Activity Restrictions/Additional Instructions: Avoid potential triggers. Prednisone as prescribed. Pepcid. Continue taking Benadryl as needed. Please monitor for any breathing difficulties, throat swelling, or any other concerning symptoms may have and return for reevaluation. Otherwise, follow-up with primary care as needed. Coding Level of Care Code ED Cotton Program Technician for Chg Fwd Documented by User: Manoj Fung DO 03/04/24 09:02 HPI - Skin/Abscess/Foreign Bdy General: Chief complaint: Skin/Abscess/Foreign Body Stated complaint: rash Time Seen by Provider: 02/28/24 21:05 [facility] PFSH: Medical History TIA (transient ischemic attack) No pertinent past medical history Surgical History No pertinent past surgical history Family History Denies family history of Colon cancer Ovarian cancer Diabetes Heart disease Hypercholesteremia Breast cancer Hypertension Uterine cancer Thyroid disease Stroke Social History Substance/Drug Use: never Course Vital Signs: Vital signs: Vital Signs Temperature 97.8 F 02/28/24 20:46 Pulse Rate 55 L 02/28/24 20:46 Respiratory Rate 16 02/28/24 20:46 Blood Pressure 164/91 02/28/24 20:46 Pulse Oximetry 98 02/28/24 20:46 Oxygen Delivery Me thod Room Air 02/28/24 20:46 MDM - Skin/Abscess/Foreign Bdy Medicial Decision Making This patient was seen due to a rash for the past couple of days that seem to be worsening. Patient was not getting relief from [id number] hydrocortisone and Benadryl. She was not reporting to me any breathing difficulties or oral swelling. Her main concern was the itchiness and the fact that she does not know what could have caused it. Examination did reveal a rash to the right lateral neck extending down towards the chest. Appearance was that of an allergic contact dermatitis of unknown cause. Patient given a shot of Decadron and Benadryl in the ED, and will be sent home with prescriptions for prednisone and Pepcid to treat her allergic symptoms. She is encouraged to continue taking Benadryl at home as needed. I did have a thorough conversation with her in regards to if she develops any breathing difficulties or oropharyngeal swelling. She agrees with this plan. Chart reviewed Discharge Plan Discharge Patient Disposition: Home Clinical Impression: Allergic contact dermatitis Qualifiers: Contact dermatitis trigger: unspecified trigger Qualified Code(s): L23.9 - Allergic contact dermatitis, unspecified cause Condition: Stable Prescriptions: New Pepcid 20 mg tablet 20 mg PO BID 10 Days Qty: 20 0RF No Action tizanidine 4 mg tablet 4 mg PO Q8H PRN (Reason: muscle spasticity) Qty: 60 2RF hydrocodone-acetaminophen 5-325 mg tablet 1 tab PO Q8H PRN (Reason: pain) 7 Days Qty: 20 0RF Benadryl Allergy 25 mg Tablet 25 - 50 mg PO BEDTIME PRN (Reason: Allergy Symptoms) Discharge Orders: Discharge ED (Routine); Ordered 02/28/24 Ordered By: Cruz Jaimes Referrals: Jesse Avila DO [Primary Care Provider] - Discharge Diet: Usual diet Discharge Activity: Increase activity as tolerated Patient Instructions: Contact Dermatitis (ED) Activity Restrictions/Additional Instructions: Avoid potential triggers. Prednisone as prescribed. Pepcid. Continue taking Benadryl as needed. Please monitor for any breathing difficulties, throat swelling, or any other concerning symptoms may have and return for reevaluation. Otherwise, follow-up with primary care as needed. Coding Level of Care Code ED Cotton Program Technician for Dejon Thomason
== END 2024-02-28 22:24 | disposition home or self-care (01) ==
PROVIDERS: Emergency Provider Physician Assistant; PCP Family Medicine
DX: L23.9 Allergic contact dermatitis, unspecified cause (principal); Z86.73 Personal history of transient ischemic attack (TIA), and cerebral infarction without residual deficits
CPT/HCPCS: 96372; 99284; J1100; J1200

== ENCOUNTER 2024-08-28 10:07 | Outpatient (CLI) | payer MEDICAID, SELFPAY ==
--- NOTE | 2024-08-28 10:11 | XR_ITS ---
WS: [id number] Exam: XR knee RT 3V* [id number] Date/Time of Exam: 08/28/2024 10:15 AM Reason For Exam: M25.561 - Pain in right knee Comparison 06/21/2021. No acute fracture. The joint compartments are preserved. No joint effusion. Varicose veins noted abou t the knee. XR/XR knee RT 3V* [id number] IMPRESSION: 1. Negative RIGHT knee.
== END 2024-08-28 10:08 | disposition home or self-care (01) ==
LOC: RAD 10:09
PROVIDERS: PCP Family Medicine; Visit Provider Emergency Medicine
DX: M25.561 Pain in right knee (principal)
CPT/HCPCS: 73562

== ENCOUNTER 2024-09-21 12:55 | Outpatient (CLI) | payer MEDICAID, SELFPAY ==
--- NOTE | 2024-09-21 13:00 | MR_ITS ---
WS: [id number] MRI RIGHT KNEE HISTORY: S86.911A - Strain of unspecified muscle(s) and tendon(s) ... COMPARISON: Radiograph 08/28/2024 Anterior cruciate ligament: Intact. Posterior cruciate ligament: Intact. Medial collateral ligament: Intact. Posterior lateral corner structures: Intact. Medial menisci: Intact. Normal signal, size and shape. Lateral meniscus: Intact. Normal signal, size and shape. Extensor mechanism: Distal quadriceps tendon and patellar tendons are intact. Fluid and soft tissue: No joint effusion. Tiny Segovia's cyst. Osseous and articular structures: Patellofemoral compartment: Normal. Medial compartment: Minimal fissuring of the cartilage. Small marginal osteophytes. Lobulated cystic mass along the semitendinosis tendon. Probably representing a ganglion cyst. Cystic mass measures 2.9 x 1.0 cm. Lateral compartment: Normal. MR/MR knee RT wo con* [id number] IMPRESSION: 1. No meniscal tear. No ACL tear. 2. Very small tiny Segovia's cyst. 3. Lobulated fluid collection adjacent to the semitendinosis tendon most consi stent with a ganglion.
== END 2024-09-21 12:56 | disposition home or self-care (01) ==
LOC: RAD 12:56
PROVIDERS: PCP Nurse Practitioner; Visit Provider Nurse Practitioner
DX: M71.21 Synovial cyst of popliteal space [Baker], right knee (principal); M25.761 Osteophyte, right knee; M25.461 Effusion, right knee
CPT/HCPCS: 73721

== ENCOUNTER → 2024-09-23 14:15 | Outpatient (BNVA) | payer MEDICAID, SELFPAY | PROVIDERS: PCP Nurse Practitioner; Visit Provider Specialist | DX: M25.511 Pain in right shoulder (principal); M25.512 Pain in left shoulder; G89.29 Other chronic pain; M47.12 Other spondylosis with myelopathy, cervical region; S16.1XXA Strain of muscle, fascia and tendon at neck level, initial encounter; X58.XXXA Exposure to other specified factors, initial encounter | CPT/HCPCS: 73030; 99214 ==

== ENCOUNTER 2024-10-06 15:56 | Outpatient (CLI) | payer MEDICAID, SELFPAY ==
--- NOTE | 2024-10-06 16:00 | MR_ITS ---
WS: [id number] MRI RIGHT SHOULDER HISTORY: right shoulder pain COMPARISON: Radiograph 09/23/2024 TECHNIQUE: Multiplanar sequences of the shoulder joint are submitted. Mild AC joint arthritis. Small hypertrophic osteophytes with hypertrophy of the joint capsule. Very m inimal osteophyte encroachment upon the supraspinatus. No subacromial impingement. Very tiny amount o f fluid along the rotator cuff interval. No os acromion. Biceps tendon in normal position. There is i ncreased T2 signal in the biceps tendon over the lesser tuberosity consistent with a very narrow tear . No muscle atrophy or edema. Small amount of fluid along the rotator cuff interval. There is mild tend inopathy and intermediate signal in the distal subscapularis tendon. Increased T2 signal in the corac ohumeral ligament with thickening. Curvilinear increased signal in the anterior labrum follows the gl enoid and this is most consistent with a normal variant. No labral tear. MR/MR shoulder RT wo con* [id number] IMPRESSION: 1. Mild AC joint arthritis. 2. Increased fluid over the rotator cuff interval with thickening of the corac ohumeral ligament. Additional partial tear of the biceps tendon over the lesser tuberosity. Consistent with injury to the rotator cuff interval. 3. Distal subscapularis tendinopathy. Tendinopathy in the subscapularis is anderson sely associated with the abnormal signal in the biceps tendon.
== END 2024-10-06 15:57 | disposition home or self-care (01) ==
LOC: RAD 15:56
PROVIDERS: PCP Nurse Practitioner; Visit Provider Specialist
DX: S46.211A Strain of muscle, fascia and tendon of other parts of biceps, right arm, initial encounter (principal); M75.91 Shoulder lesion, unspecified, right shoulder; X58.XXXA Exposure to other specified factors, initial encounter
CPT/HCPCS: 73221

== ENCOUNTER → 2024-10-21 13:45 | Outpatient (BNVA) | payer MEDICAID, SELFPAY | PROVIDERS: PCP Nurse Practitioner; Visit Provider Specialist | DX: M19.011 Primary osteoarthritis, right shoulder | CPT/HCPCS: 20610; 99214; J1100; J2795; J3301 ==

== ENCOUNTER → 2024-11-09 15:22 | Outpatient (BNVA) | payer MEDICAID, SELFPAY | PROVIDERS: PCP Nurse Practitioner; Visit Provider Specialist | DX: M25.561 Pain in right knee; S86.911A Strain of unspecified muscle(s) and tendon(s) at lower leg level, right leg, initial encounter; X58.XXXA Exposure to other specified factors, initial encounter; R29.6 Repeated falls | CPT/HCPCS: 73560; 73565; 99214 ==

== ENCOUNTER 2024-11-16 14:56 | Emergency (ER) | payer MEDICAID, SELFPAY ==
[2024-11-16 15:00] VITALS: PULSE 59; TEMP 36.8; O2SAT 100; BMI 29.7
--- NOTE | 2024-11-16 15:37 | ED_ITS ---
HPI - Neck Pain/Injury General: Chief Complaint: Neck Pain/Injury Stated Complaint: neck and back head pain Time Seen by Provider: 11/16/24 15:08 Source: patient Mode of arrival: ambulatory Limitations: no limitations History of Present Illness: 54yo female presents with family for bonifacio luation of headache, nausea, and neck pain following injury that occurred 2 days ago. 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 Patient reports that she has had a headache, nausea, and neck pain since. Patient has tried acetaminophen with no improvement in her symptoms. Patient denies loss of consciousness, use of blood thinners, falling to the ground following the injury, vomiting. Family member does report previous neck injuries so much so that she could have had neck surgery, but they were living off grid and could not have it done. Associated symptoms: Reports headache(s) and nausea; Denies difficulty walking Related Data Previous Rx's Medication Instructions Recorded cyclobenzaprine 10 mg tablet 10 mg PO TID PRN muscle spasm #20 11/16/24 tabs ketorolac 10 mg tablet 10 mg PO Q8H PRN pain 5 days #15 11/16/24 tabs ondansetron 4 mg disintegrating 4 mg PO Q8H PRN nausea and 11/16/24 tablet vomiting #20 tabs Allergies Allergy/AdvReac Type Severity Reaction Status Date / Time latex Allergy ALGY-Hives Verified 11/16/24 15:04 tetracycline Allergy ALGY-Difficulty Verified 11/16/24 15:04 Breathing Review of Systems Const: Denies: fever(s) or chills Card: Denies: chest pain Resp: Denies: dyspnea GI: Reports: nausea; Denies: vomiting Musc: Reports: neck pain; Denies: back pain Neuro: Reports: headache(s); Denies: difficulty walking PFSH ED PFSH: Medical History TIA (transient ischemic attack) No pertinent past medical history Surgical History No pertinent past surgical history Family History Denies family history of Colon cancer Ovarian cancer Diabetes Heart disease Hypercholesteremia Breast cancer Hypertension Uterine cancer Thyroid disease Stroke Social History Smoking and tobacco/nicotine status: never used tobacco/nicotine Substance/Drug Use: never Female Reproductive History: Spontaneous abortions: No Physical Exam Const: COMMON NORMALS: no acute distress, patient oriented x3, healthy appearing and alert GENERAL APPEARANCE: cooperative ORIENTATION/CONSCIOUSNESS: Yes oriented to person, Yes oriented to place and Yes oriented to time OTHER: Patient is sitting upright in a recliner in no acute distress. She is able to give history with no difficulty. She is interactive with exam appropriately. Family is at bedside HENMT: COMMON NORMALS: normocephalic HEAD & SCALP: normal to inspection and normocephalic; no abrasion, no Garcia's sign, no contusion, no hematoma, no laceration, no palpable skull fracture and no raccoon eyes Eye: GENERAL EYE: appearance normal, both eyes and all related structures Neck/C-Spine: CERVICAL SPINE: No pain with cervical ROM, Yes Cervical spine tenderness C3, C4 and C5 and No step off deformity Chest: CHEST: Yes Symmetrical chest wall rise Resp: COMMON NORMALS: normal respiratory effort Extremity: COMMON NORMALS: full ROM Neuro: COMMON NORMALS: patient oriented x3 and moves all extremities SENSORIUM/ORIENTATION: Yes alert, Yes oriented to person, Yes oriented to place and Yes oriented to time GAIT: Yes Normal gait present Psych: COMMON NORMALS: cooperative Course Vital Signs: Vital signs: Vital Signs Temperature 98.2 F 11/16/24 15:00 Pulse Rate 59 L 11/16/24 15:00 Pulse Oximetry 100 11/16/24 15:00 Oxygen Delivery Me thod Room Air 11/16/24 15:00 MDM - Neck Pain/Injury Medical Decision Making 54yo female presents with family for evaluation of headache, nausea, and neck pain following injury that occurred 2 days ago. 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 Patient reports that she has had a headache, nausea, and neck pain since. Patient has tried acetaminophen with no improvement in her symptoms. Patient denies loss of consciousness, use of blood thinners, falling to the ground following the injury, vomiting. Patient is nontoxic in appearance. Vital signs are stable. Will proceed with CT scan of the head as well as CT cervical spine to evaluate for bony injury. No acute bony abnormalities noted on the CT scan of the cervical spine. No abnormality noted on the CT scan of the head. Discussed findings with patient. Advised this is likely a concussion with muscle strain of the neck given the nature of the injury. Patient did receive ketorolac and orphenadrine while in the emergency department and did report some improvement in her symptoms. Cyclobenzaprine, ketorolac, and ondansetron sent to patient's pharmacy, sedation precautions provided. Recommend patient follow-up with primary care within 1 week for recheck, sooner if needed. Advised return to the emergency department if any rapid worsening symptoms, further injury, and as needed. Patient states understanding has no further questions or concerns at this time. Differential Diagnosis Likely disc disorder of cervical region, whiplash injury to neck, closed subluxation of cervical spine, fracture of cervical spine without lesion of spinal cord and strain of neck muscle Lab Data Radiology Impressions Cervical Spine CT 11/16/24 15:42 IMPRESSION: No acute findings. Head CT 11/16/24 15:42 IMPRESSION: No acute intracranial abnormality. All radiology interpretation(s) finalized by discharge Discharge Plan Discharge Patient Disposition: Home Clinical Impression: Head injury Qualifiers: Encounter type: initial encounter Qualified Code(s): S09.90XA - Unspecified injury of head, initial encounter Acute cervical myofascial strain Qualifiers: Encounter type: initial encounter Qualified Code(s): S16.1XXA - Strain of muscle, fascia and tendon at neck level, initial encounter Condition: Stable Prescriptions: New ketorolac 10 mg tablet 10 mg PO Q8H PRN (Reason: pain) 5 Days Qty: 15 0RF ondansetron 4 mg tablet,disintegrating 4 mg PO Q8H PRN (Reason: nausea and vomiting) Qty: 20 0RF cyclobenzaprine 10 mg tablet 10 mg PO TID PRN (Reason: muscle spasm) Qty: 20 0RF Discharge Orders: Discharge ED (Routine); Ordered 11/16/24 Ordered By: Brennan Magallanes Referrals: Gloria Arrieta FNP [Primary Care Provider] - Discharge Diet: Usual diet Discharge Activity: Increase activity as tolerated Patient Instructions: Concussion/Head Injury - Adult, Cervical Strain (ED) Activity Restrictions/Additional Instructions: No acute abnormalities were noted on the CT scan of the head or cervical spine. The pain is likely related to muscle pain of the neck and possible concussion of the head Ondansetron has been sent to the pharmacy to help with nausea Ketorolac and cyclobenzaprine have been sent to the pharmacy to help with inflammation, headache, as well as muscle pain. Please do not drive or operate heavy machinery while taking cyclobenzaprine Try to avoid heavy lifting and straining Follow-up with primary care, call in 2 to 3 days with an update of symptoms and to discuss to recheck Return to the emergency department if any further injury, rapid worsening symptoms, and as needed Coding Level of Care Code ED Burn Out Scarfing Operator for Dejon Thomason
--- NOTE | 2024-11-16 15:42 | CTR_ITS ---
PROCEDURE INFORMATION: Exam: CT Head Without Contrast Exam date and time: 11/16/2024 3:49 PM Age: 54 years old Clinical indication: Injury or trauma; Other: Ice fell on head; Blunt trauma (contusions or hematomas); Without loss of consciousness; Injury date: 11/14/2024; Additional info: Trauma 2d ago, GOMES, block of ice fell, striking back of head and neck TECHNIQUE: Imaging protocol: Computed tomography of the head without contrast. Radiation optimization: All CT scans at this facility use at least one of these dose optimization techniques: automated exposure control; mA and/or kV adjustment per patient size (includes targeted exams where dose is matched to clinical indication); or iterative reconstruction. COMPARISON: CT angio headneck* [id number] 05/21/2022 3:07 PM RADIATION DOSE METRICS: Total DLP (mGy-cm): 1167.8 FINDINGS: Brain: Normal. No hemorrhage. Unremarkable white matter. No mass effect. Cerebral ventricles: No ventriculomegaly. Paranasal sinuses: Visualized sinuses are unremarkable. No fluid levels. Mastoid air cells: Visualized mastoid air cells are well aerated. Bones: Unremarkable. No acute fracture. Soft tissues: Unremarkable. CT/CT head wo con* [id number] IMPRESSION: No acute intracranial abnormality.
--- NOTE | 2024-11-16 15:42 | CTR_ITS ---
PROCEDURE INFORMATION: Exam: CT Cervical Spine Without Contrast Exam date and time: 11/16/2024 3:49 PM Age: 54 years old Clinical indication: Injury or trauma; Other: Ice fell on head; Blunt trauma; Injury date: 11/14/2024; Additional info: Trauma, block of ice fell striking back of head/neck TECHNIQUE: Imaging protocol: Computed tomography of the cervical spine without contrast. Radiation optimization: All CT scans at this facility use at least one of these dose optimization techniques: automated exposure control; mA and/or kV adjustment per patient size (includes targeted exams where dose is matched to clinical indication); or iterative reconstruction. COMPARISON: MR cervical spin wo con* [id number] 08/21/2022 10:14 AM RADIATION DOSE METRICS: Total DLP (mGy-cm): 1072.5 FINDINGS: Bones: No acute fracture. Normal alignment. No significant disc bulge or herniation. No severe spinal canal stenosis. Lungs: Lung apices are normal. Soft tissues: Unremarkable. CT/CT cervical spin wo con* [id number] IMPRESSION: No acute findings.
[2024-11-16] MEDS: ketorolac 30 mg/mL INJ IM (16:28)
[2024-11-16] MEDS: orphenadrine 30 mg/mL Inj 2 mL 60 MG IM (16:28)
[2024-11-16 17:01] VITALS: BP 127/59; PULSE 54; O2SAT 98
== END 2024-11-16 17:02 | disposition home or self-care (01) ==
PROVIDERS: Emergency Provider Nurse Practitioner; PCP Nurse Practitioner
DX: S09.90XA Unspecified injury of head, initial encounter (principal); S16.1XXA Strain of muscle, fascia and tendon at neck level, initial encounter; Z86.73 Personal history of transient ischemic attack (TIA), and cerebral infarction without residual deficits; W20.8XXA Other cause of strike by thrown, projected or falling object, initial encounter
CPT/HCPCS: 70450; 72125; 96372; 99284; J1885; J2360

== ENCOUNTER → 2024-11-24 13:22 | Outpatient (BNVA) | payer MEDICAID, SELFPAY | PROVIDERS: PCP Nurse Practitioner; Visit Provider Orthopaedic Surgery | DX: S16.1XXA Strain of muscle, fascia and tendon at neck level, initial encounter (principal); X58.XXXA Exposure to other specified factors, initial encounter; M47.12 Other spondylosis with myelopathy, cervical region | CPT/HCPCS: 72050; 99214 ==

== ENCOUNTER 2024-12-01 13:21 | Outpatient (CLI) | payer MEDICAID, SELFPAY ==
--- NOTE | 2024-12-01 13:45 | MR_ITS ---
WS: [id number] MRI CERVICAL SPINE 08/21/2022 HISTORY: Neck Pain COMPARISON: 08/21/2022 Technique: Multiplanar, multisequence noncontrast imaging of the cervical spine. Straightening of the normal cervical lordosis. Reidentified is retrolisthesis of C5 by 2.4 mm, simila r to the prior study. Small Schmorl's node superior endplate of C7 is reidentified. Schmorl's node ap pears slightly larger than on the prior study with increased edema along the superior endplate. Signal within the cord remains normal. Craniocervical junction, C1 and C2 relationship, odontoid process and soft tissues are normal. C2-C3: Normal. C3-C4: Shallow LEFT paracentral disc protrusion. Moderate bilateral facet arthritis. Very minimal for aminal narrowing. C4-C5: Marked narrowing of the RIGHT foramen. Progression of stenosis and narrowing since 2021. There is loss of the normal fat with adjacent facet joint arthritis. CT from 11/16/2024 is reviewed. There are osteophytes from the articular facets extending into the foramen causing significant narrowing. M arked facet joint arthropathy was also noted on the CT on the RIGHT. C5-C6: Annular disc bulging with a small to moderate LEFT foraminal disc osteophyte. Mild central and RIGHT foraminal stenosis with severe LEFT foraminal stenosis due to the disc and osteophyte. LEFT fo raminal osteophytes are also confirmed on the CT from 11/16/2024. C6-C7: Mild annular disc bulging and disc bulging. Mild foraminal narrowing. C7-T1: Normal. Paravertebral soft tissues are normal. MR/MR cervical spin wo con* [id number] IMPRESSION: 1. No acute cervical spine fracture. 2. New shallow LEFT paracentral disc protrusion at C3-4 with moderate bilatera l facet joint arthropathy. 3. C4-5: Marked narrowing of the RIGHT foramen. There is effacement of fat in the foramen. CT performed on 11/16/2024 confirms the stenosis is due to the face t joint osteophytes encroaching into the foramen causing a significant stenosis . Marked facet joint arthropathy on the RIGHT. 4. C5-6: Small to moderate LEFT foraminal disc osteophyte. Mild central, RIGHT foraminal stenosis and severe LEFT foraminal stenosis due to disc and osteophy te and facet arthritis. 5. Schmorl's node defect superior endplate of C7 slightly increased in size si nce 2021.
== END 2024-12-01 13:22 | disposition home or self-care (01) ==
LOC: RAD 13:22
PROVIDERS: PCP Nurse Practitioner; Visit Provider Orthopaedic Surgery
DX: M48.02 Spinal stenosis, cervical region (principal); M47.892 Other spondylosis, cervical region; M25.78 Osteophyte, vertebrae; R93.7 Abnormal findings on diagnostic imaging of other parts of musculoskeletal system; M50.322 Other cervical disc degeneration at C5-C6 level; M50.323 Other cervical disc degeneration at C6-C7 level
CPT/HCPCS: 72141

== ENCOUNTER → 2024-12-10 14:43 | Outpatient (BNVA) | payer MEDICAID, SELFPAY | PROVIDERS: PCP Nurse Practitioner; Visit Provider Orthopaedic Surgery | DX: M47.12 Other spondylosis with myelopathy, cervical region (principal) | CPT/HCPCS: 36415; 80053; 81001; 85025; 99214 ==

== ENCOUNTER → 2025-01-08 10:53 | Outpatient (BNVA) | payer MEDICAID, SELFPAY | PROVIDERS: PCP Nurse Practitioner; Visit Provider Family Medicine | DX: Z01.818 Encounter for other preprocedural examination (principal) | CPT/HCPCS: 80048; 81003; 85007; 85027; 93005 ==

== ENCOUNTER 2025-01-18 05:38 | Day surgery (SDC) | payer MEDICAID, SELFPAY ==
[2025-01-18] VITALS (20 sets, daily range): BP systolic 115–163; BP diastolic 66–94; PULSE 43–65; RESP 14–18; TEMP 36.1–36.4; O2SAT 93–98
[2025-01-18] MEDS: sodium chloride 0.9% 1,000 ML 30 ML IV (06:16)
[2025-01-18 06:24] LABS: OR HCG Qualitative Urine Negative (Negative)
--- NOTE | 2025-01-18 06:24 | P.HP_ITS ---
Same Day Surgery H&P Indication for Procedure/HPI DATE OF PROCEDURE: January 18, 2025 CHIEF COMPLAINT/INDICATIONFOR SURGICAL PROCEDURE: Neck and arm pain PREOP DIAGNOSIS: Cervical stenosis with myelopathy PLANNED PROCEDURE: Operation Date: 01/18/25 07:00 Proposed Procedures p Anterior Cervical Discectomy & Fusion ACDF w/ Anterior Interbody Fusion w/ C age w/ Instrumentation w/ Allograft w/ Navigation(Not Applicable) - Nathanael Figueroa, DO Medications/Allergies* Allergies/Adverse Reactions Allergy/AdvReac Type Severity Reaction Status Date / Time latex Allergy ALGY-Hives Verified 01/08/25 11:22 tetracycline Allergy ALGY-Difficulty Verified 01/08/25 11:22 Breathing Current Medications: Generic Name Dose Route Start Last Admin Trade Name Freq PRN Reason Stop Dose Admin Sodium Chloride 1,000 mls @ 30 mls/hr 01/18/25 06:00 01/18/25 06:16 Sodium Chloride 0.9% IV 01/19/25 05:59 30 mls/hr .Q24H NICOLETTE Administration Pertinent History/Comorbid Conditions* Medical History (Updated 11/24/24 @ 00:00 by NOREEN Clement) TIA (transient ischemic attack) No pertinent past medical history Surgical History (Updated 12/23/20 @ 15:51 by JUN Perez) No pertinent past surgical history Family History (Updated 11/20/22 @ 08:01 by Echo Gates LPN) Denies family history of Colon cancer Ovarian cancer Diabetes Heart disease Hypercholesteremia Breast cancer Hypertension Uterine cancer Thyroid disease Stroke Social History Smoking and tobacco/nicotine status: never used tobacco/nicotine Substance/Drug Use: never Pertinent Exam Findings alert, oriented x 3 and procedure specific exam findings Recommendations Surgery/Procedure today Coding Level of Care Code Acute Code for Marco Antoniog Katelin
--- NOTE | 2025-01-18 06:56 | P.ANESASSM_ITS ---
Pre-Anesthetic Assessment Height/Weight: Height 1.7 m Weight 81.647 kg Temp Pulse Resp BP Pulse Ox O2 Del Method 97.5 F L 53 L 16 140/81 98 Room Air 01/18/25 06:06 01/18/25 06:06 01/18/25 06:06 01/18/25 06:06 01/18/25 06:06 01/18/25 06:06 Preop Diagnosis: Cervical stenosis with myelopathy Operation Date: 01/18/25 07:00 Proposed Procedures p Anterior Cervical Discectomy & Fusion ACDF w/ Anterior Interbody Fusion w/ Cage w/ Instrumentation w/ Allograft w/ Navigation(Not Applicable) - Nathanael Figueroa, DO Familial anesthetic complications: None Was Beta Cole taken within 24 hours: N/A Was Clonidine taken within 24 hours: N/A Last intake: Intake Last Liquid Date 01/17/25 Last Liquid Time 22:00 Last Solid Date 01/17/25 Last Solid Time 20:00 Social No alcohol and No tobacco Exam alert, oriented x 3, clear to auscultation bilaterally and regular rate & rhythm Airway Mallampati: Class II Dentition: chipped Neuropsych Transient Ischemic Attack Anesthetic Plan ASA status: 2 Anesthesia: Regional (specify below) Risk of > 500 ml blood loss (7ml/kg in children): No Medications/Allergies Home Medications ?Medication ?Instructions ?Recorded ?Confirmed ?Last Taken ?Type Bone Growth Stimulator #1 ea 12/29/24 01/18/25 Unkn own Rx Allergies Allergy/AdvReac Type Severity Reaction Status Date / Time latex Allergy ALGY-Hives Verified 01/08/25 11:22 tetracycline Allergy ALGY-Difficulty Verified 01/08/25 11:22 Breathing Current Medications Generic Name Dose Route Start Last Admin Trade Name Freq PRN Reason Stop Dose Admin Sodium Chloride 1,000 mls @ 30 mls/hr 01/18/25 06:00 01/18/25 06:16 Sodium Chloride 0.9% IV 01/19/25 05:59 30 mls/hr .Q24H NICOLETTE Administration PFSH Anesthesia Medical History TIA (transient ischemic attack) No pertinent past medical history Surgical History No pertinent past surgical history Family History Denies family history of Colon cancer Ovarian cancer Diabetes Heart disease Hypercholesteremia Breast cancer Hypertension Uterine cancer Thyroid disease Stroke Social History Smoking and tobacco/nicotine status: never used tobacco/nicotine Substance/Drug Use: never Female Reproductive History Spontaneous abortions: No Data Anesthesia Cardiac Studies: No Data to Display
[2025-01-18] MEDS: ceFAZolin 2,000 mg SDV 2000 MG IVP (07:00)
[2025-01-18] MEDS: lidocaine-epi 1% 20 mL INJ INJECTION (07:49)
--- NOTE | 2025-01-18 09:12 | PM.OP ---
Operative Report Date of procedure: January 18, 2025 Pre-op diagnosis: Cervical stenosis with radiculopathy and myelopathy Post-op diagnosis: same Procedure done: 1. Anterior diskectomy C4/5 2. Anterior discectomy C5/6 3. Insertion of cage C4/5 4. Insertion of Cage C5/6 5. Instrumentation with anterior plate from C4-C6 6. Use of allograft Surgeon: Nathanael Figueroa DO Estimated blood loss (mL): 25 Procedure: 1. Anterior diskectomy C4/5 2. Anterior discectomy C5/6 3. Insertion of cage C4/5 4. Insertion of Cage C5/6 5. Instrumentation with anterior plate from C4-C6 6. Use of allograft The patient was taken to the operating room, where he underwent general endotracheal anesthesia without complications. He was then positioned supine on the operating table, and all areas of impingement were well padded. The arms were carefully padded and tucked at his sides. A roll was placed between the shoulder blades.. An x-ray was done to determine the appropriate level for the skin incision. The entire neck was then sterilely prepped and draped in the usual fashion. Neuromonitoring was attached prior to prepping. A transverse skin incision was made and carried down to the platysma muscle. This was then split in line with its fibers. Blunt dissection was carried down medial to the carotid sheath and lateral to the trachea and esophagus until the anterior cervical spine was visualized. A needle was placed into a disc and an x-ray was done to determine its location. The longus colli muscles were then elevated bilaterally with the electrocautery unit. Self-retaining retractors were placed deep to the longus colli muscle. Attention was brought to the C4/5 level that was confirmed on x-ray. A caspar pin was placed into the C4 vertebrae and the C5 vertebrae. The disk space was then distracted. The microscope was then brought in. A radical anterior discectomies were performed at C4/5. This included complete removal of the anterior annulus, nucleus, and posterior annulus. The posterior longitudinal ligament was removed as were the posterior osteophytes. Foraminotomies were then accomplished bilaterally. This was done using a high speed eddie, kerrison rongeurs and curretes Once all of this was accomplished, the curved currette was used to check for any residual compression. The central canal was wide open as were the foramen. A high-speed bur was used to remove the cartilaginous endplates above and below the interspace. Bleeding cancellous bone was exposed. The disc space were measured and appropriate size cage were placed sterilely onto the field. Allograft graft was packed into the cages. The cage was then placed and there was good juxtaposition against the bleeding decorticated surfaces and good distraction of each interspace. Attention was brought to the next interspace. The [place] pins were removed. Bone wax was used to prevent any bleeding from occurring at the pin sites. Attention was brought to the C5/6 level that was confirmed on x-ray. A caspar pin was placed into the C5 vertebrae and the C6 vertebrae. The disk space was then distracted. The microscope was then brought in. A radical anterior discectomies were performed at C5/6. This included complete removal of the anterior annulus, nucleus, and posterior annulus. The posterior longitudinal ligament was removed as were the posterior osteophytes. Foraminotomies were then accomplished bilaterally. This was done using a high speed eddie, kerrison rongeurs and curretes Once all of this was accomplished, the curved currette was used to check for any residual compression. The central canal was wide open as were the foramen. A high-speed bur was used to remove the cartilaginous endplates above and below the interspace. Bleeding cancellous bone was exposed. The disc space were measured and appropriate size cage were placed sterilely onto the field. Allograft graft was packed into the cages. The cage was then placed and there was good juxtaposition against the bleeding decorticated surfaces and good distraction of each interspace. The [place] pins were removed. Bone wax was used to prevent any bleeding from occurring at the pin sites. The appropriate size anterior cervical locking plate was chosen and bent into gentle lordosis. Two screws were then placed into each of the vertebral bodies at C4, C5 and C6. There was excellent purchase. A final x-ray was done confirming good position of the hardware and Cages. The locking screws were then applied, also with excellent purchase. Following a final copious irrigation, there was good hemostasis and no dural leaks. The carotid pulse was strong. The wounds were then closed in layers using 2-0 Vicryl suture for the platysma muscle, 2-0 Vicryl suture for the subcutaneous tissue, and 4-0 monocryl suture in a subcuticular skin closure. Glue was placed followed by application of a sterile dressing. The drain was hooked to bulb suction. A soft collar was applied. The patient was then carefully returned to the supine position on his hospital bed where he was reversed and extubated and taken to the recovery room having tolerated the procedure well.
[2025-01-18] MEDS: fentaNYL 50 mcg/mL INJ 2mL IVP ×2 (09:32→09:52)
[2025-01-18] MEDS: HYDROcodone-acetaminophen 5-325 mg Tablet 2 TAB PO (11:06)
--- NOTE | 2025-01-18 11:09 | PC.NURSE ---
Pt arrived in Phase 2 at 1019 pt vital signs stable pt stated pain at 7 oral pain meds were ordered. pt asked what she would like to have to drink and eat sprite and pudding were provided. pt rested comfortably family was called and they were informed that the patient was back from recovery. patient is eating and drinking well but stated that she was having numbness in her left arm down to her fingertips. A call was placed to the surgeon at 1105 waiting on further instructions. pt provided her oral pain medication at 1108 with a pain level stated at a 6
--- NOTE | 2025-01-18 12:20 | ANE.PACU2 ---
Inpatient post-anesthesia follow up: Airway intact: Yes Vital signs: Temperature 97.6 F Pulse Rate 64 Respiratory Rate 16 Blood Pressure 131/75 Pulse Oximetry 95 Oxygen Delivery Me thod Room Air Oxygen Flow Rate 2 Fraction of Inspir ed Oxygen Hydration adequate: Yes Nausea and vomiting: No Pain level: 1 Mental status: Baseline
--- NOTE | 2025-01-18 14:00 | XR_ITS ---
WS: [id number] INTRAOPERATIVE TECHNIQUE: 4 Spot fluoroscopic images for intraoperative purposes. FLUOROSCOPY TIME: 19.7 seconds CLINICAL INFORMATION: acdf, or pic FINDINGS: ACDF C4-C6 with interbody fusion grafts. Endotracheal tube XR/XR cervical spine 3V* [id number] IMPRESSION: Images obtained for intraoperative purposes.
== END 2025-01-18 12:20 | disposition home or self-care (01) ==
PROVIDERS: Anesthesiology; PCP Nurse Practitioner; Visit Provider Orthopaedic Surgery
PROC: 0RB30ZZ Excision of Cervical Vertebral Disc, Open Approach (ICD-10-PCS; CPT 22551; principal; 2025-01-18 07:00)
DX: M48.02 Spinal stenosis, cervical region (principal); M54.12 Radiculopathy, cervical region; G99.2 Myelopathy in diseases classified elsewhere; Z86.73 Personal history of transient ischemic attack (TIA), and cerebral infarction without residual deficits; K08.89 Other specified disorders of teeth and supporting structures; Z91.040 Latex allergy status; Z88.8 Allergy status to other drugs, medicaments and biological substances
CPT/HCPCS: 22551; 22552; 22853 ×2; 20930; 72040; 76000; 81025; C1713; C1763; C9359; J0330; J0690; J1100; J1171; J2250; J2405; J2704; J3010; J3490; J7030; J9999

== ENCOUNTER → 2025-02-02 13:32 | Outpatient (BNVA) | payer MEDICAID, SELFPAY | PROVIDERS: PCP Nurse Practitioner; Visit Provider Orthopaedic Surgery | DX: Z98.1 Arthrodesis status (principal) | CPT/HCPCS: 99024 ==

== ENCOUNTER → 2025-02-11 14:59 | Outpatient (BNVA) | payer MEDICAID, SELFPAY | PROVIDERS: PCP Nurse Practitioner; Visit Provider Orthopaedic Surgery | DX: M54.2 Cervicalgia (principal); Z98.1 Arthrodesis status | CPT/HCPCS: 99024 ==

== ENCOUNTER 2025-02-18 06:50 | Outpatient (CLI) | payer MEDICAID, SELFPAY ==
--- NOTE | 2025-02-18 07:00 | CT_ITS ---
WS: [id number] CT CERVICAL SPINE HISTORY: Neck pain, recent cervical surgery, now with RIGHT shoulder and arm pain. TECHNIQUE: Contiguous 2.0 mm axial imaging performed through the entire cervical spine. Sagittal and coronal reformats also performed. All CT scans at [facility] use at least one of these dose optimization techniques: automated exposure control; mA and/or kV adjustment per patient size (includes targeted exams where dose is matched to clinical indication); or iterative reconstruction. DLP: 157.37 mGy.cm COMPARISON: 11/16/2024 Since 11/16/2024 anterior cervical fusion has been placed extending from C4-C6. Plate appropriately positioned against the vertebral bodies. Interbody disc spacers at C4-5 and C5-6. No subsidence or displacement of the spacers. No hardware fracture. Posterior cervical alignment is near normal. Very slight anterolisthesis of C4. Facet joint arthritis at several levels. Lateral masses of C1 and C2 are intact. Craniocervical junction is normal. C2-C3: Normal. C3-C4: Bilateral facet joint arthritis. Small foraminal osteophytes. C4-C5: Bilateral facet joint arthritis. Moderate RIGHT facet joint arthropathy. Facet joint osteophyte and encroaches into the foramen. Similar to the prior study. There is contact on the nerve root. C5-C6: Osteophytic ridging greatest to the LEFT. Moderate to severe LEFT foraminal stenosis. C6-C7: Normal. C7-T1: Normal. Paravertebral soft tissues are negative. Cervical apices are clear. CT/CT cervical spin wo con* [id number] IMPRESSION: 1. Since 11/16/2024 interval anterior cervical fusion from C4-C6 with interbody spacers. Hardware is intact. 2. No new central disc protrusion. 3. RIGHT facet joint arthropathy and a facet osteophyte causing narrowing of t he RIGHT C4-5 foramen. 4. Moderate to severe LEFT foraminal stenosis at C5-6.
== END 2025-02-18 06:51 | disposition home or self-care (01) ==
PROVIDERS: PCP Nurse Practitioner; Visit Provider Orthopaedic Surgery
DX: M47.892 Other spondylosis, cervical region (principal); Z98.890 Other specified postprocedural states; M25.78 Osteophyte, vertebrae; M48.02 Spinal stenosis, cervical region
CPT/HCPCS: 72125

== ENCOUNTER → 2025-03-02 13:59 | Outpatient (BNVA) | payer MEDICAID, SELFPAY | PROVIDERS: PCP Nurse Practitioner; Visit Provider Orthopaedic Surgery | DX: Z98.1 Arthrodesis status (principal) | CPT/HCPCS: 99024 ==

== ENCOUNTER → 2025-03-09 15:42 | Outpatient (BNVA) | payer MEDICAID, SELFPAY | PROVIDERS: PCP Nurse Practitioner; Visit Provider Nurse Practitioner | DX: M25.561 Pain in right knee (principal) | CPT/HCPCS: 73562 ==

== ENCOUNTER → 2025-04-13 13:31 | Outpatient (BNVA) | payer MEDICAID, SELFPAY | PROVIDERS: PCP Nurse Practitioner; Visit Provider Orthopaedic Surgery | DX: M54.2 Cervicalgia (principal) | CPT/HCPCS: 72040; 99024 ==

== ENCOUNTER → 2025-08-10 14:19 | Outpatient (BNVA) | payer MEDICAID, SELFPAY | PROVIDERS: PCP Nurse Practitioner; Visit Provider Orthopaedic Surgery | DX: Z98.1 Arthrodesis status (principal) | CPT/HCPCS: 72040; 99213 ==

== ENCOUNTER 2025-09-01 19:38 | Emergency (ER) | payer MEDICAID, SELFPAY ==
[2025-09-01 19:42] VITALS: BP 156/76; PULSE 56; RESP 14; TEMP 36.7; O2SAT 98; BMI 29.7
--- OUTSIDE RECORDS SUMMARY | 2025-09-01 19:46 | XMS_ITS | Data Portability ---
Author Organization [facility] Address [address] [place] [phone] Assessment No assessment recorded. Plan of Treatment Reminders Order Date Submit Date Provider Last Modified By Organization Details Last Modified Time Details Appointments None record ed. Lab None record ed. Referral None record ed. Procedures None record ed. Surgeries None record ed. Imaging None record ed. Medication Orders None record ed. Patient TargetsNo targets recorded. Patient InstructionsNo instructions recorded. Reason for Referral None Reported. 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 Medical Equipment None Reported. Allergies Allergen ID Allergen Name Allergen Category Reaction Reaction Severity Criticality Documentation Date Start Date Code Code System Note Provider Name and Address Organization Details Recorded Time 82694 Substance with tetracycl ine structure (substanc e) medicatio n hives Not available Not available 06/01/2023 71864 8001 SNOMED React ion: Hives , Dizzi ness; Comme nt: Recor ded 03/07 2:40P M by Delmy jurado LPN, Offic e Visit ; Promo henri; Signjarek mahmood ce: *; ; Not Available [facility] 3 02:24:39 Vitals None Recorded Social History None recorded. Functional Status None recorded. Mental Status None recorded. Family History Nothing Reported. Medical History No medical history recorded. Gynecological HistoryNo gynecological history recorded. Obstetrics History GPAL:G 0 P 0 0 0 0 Past Encounters Encounter ID Performer Location Encounter Start Date Encounter Closed Date Diagnosis/Indication Diagnosis SNOMED-CT Code Diagnosis ICD10 Code Diagnosis IMO Codes Diagnosis Note [id number] JUN GILLETTE [facility] ([facility]) [address] [place] [address] 11/16/2024 14:49:01 11/16/2024 15:14:18 Health Concerns Section Related Observation LastModified by Organization Detai ls LastModified Time None Recorded Concern Status LastModified by Organization Details LastModified Time None Recorded Advance Directives Directive None Recorded Payers Insurance Date Sequence Insurance Name Policy Number Policy Bell Covered Member ID Bell Member ID Guarantor Name 11/16/2024 1 [place] Samanta Guallpa [id number] Samanta Guallpa OBGyn Episode No OBEpisode recorded.
--- NOTE | 2025-09-01 20:26 | CTR_ITS ---
PROCEDURE INFORMATION: Exam: CT Head Without Contrast Exam date and time: 09/01/2025 8:32 PM Age: 55 years old Clinical indication: Injury or trauma; Fall; Additional info: Fall off ladder onto R head, worsening GOMES, nausea TECHNIQUE: Imaging protocol: Computed tomography of the head without contrast. Radiation optimization: All CT scans at this facility use at least one of these dose optimization techniques: automated exposure control; mA and/or kV adjustment per patient size (includes targeted exams where dose is matched to clinical indication); or iterative reconstruction. COMPARISON: CT head wo con* [id number] 11/16/2024 3:49 PM RADIATION DOSE METRICS: Total DLP (mGy-cm): 1105.9 FINDINGS: Brain: Normal. No hemorrhage. Unremarkable white matter. No mass effect. Cerebral ventricles: No ventriculomegaly. Paranasal sinuses: Visualized sinuses are unremarkable. No fluid levels. Mastoid air cells: Visualized mastoid air cells are well aerated. Bones: Unremarkable. No acute fracture. Soft tissues: Unremarkable. CT/CT head wo con* [id number] IMPRESSION: No acute intracranial abnormality.
--- NOTE | 2025-09-01 20:26 | XRR_ITS ---
PROCEDURE INFORMATION: Exam: XR Chest Exam date and time: 09/01/2025 8:39 PM Age: 55 years old Clinical indication: Injury or trauma; Fall; Blunt trauma (contusions or hematomas); Additional info: Fall off ladder onto R shoulder head/neck shouldr TECHNIQUE: Imaging protocol: Radiologic exam of the chest. Views: 1 view. COMPARISON: CT cervical spin wo con* [id number] 09/01/2025 8:32 PM FINDINGS: Lungs: Unremarkable. No consolidation. Pleural spaces: Unremarkable. No pleural effusion. No pneumothorax. Heart/Mediastinum: Unremarkable. No cardiomegaly. Bones/joints: Unremarkable. XR/XR chest 1V portable [id number] IMPRESSION: No acute findings.
--- NOTE | 2025-09-01 20:26 | XRR_ITS ---
PROCEDURE INFORMATION: Exam: XR Right Shoulder Exam date and time: 09/01/2025 8:40 PM Age: 55 years old Clinical indication: Injury or trauma; Fall; Blunt trauma (contusions or hematomas); Shoulder; Right; Additional info: Fall off ladder onto R shoulder head/neck shouldr TECHNIQUE: Imaging protocol: Radiologic exam of the right shoulder. Views: 1 view. COMPARISON: CR (UP EX, ) 11/05/2021 1:59 PM FINDINGS: Bones/joints: Normal. Soft tissues: Normal. XR/XR shoulder RT 1V [id number] IMPRESSION: No acute findings.
--- NOTE | 2025-09-01 20:26 | XRR_ITS ---
PROCEDURE INFORMATION: Exam: XR Right Humerus Exam date and time: 09/01/2025 8:43 PM Age: 55 years old Clinical indication: Injury or trauma; Fall; Blunt trauma (contusions or hematomas); Arm, upper; Right; Additional info: Fall off ladder onto R shoulder head/neck shouldr TECHNIQUE: Imaging protocol: Radiologic exam of the right humerus. Views: 2 or more views. COMPARISON: ([facility], ) 11/05/2021 1:59 PM FINDINGS: Bones/joints: Normal. Soft tissues: Normal. XR/[place] [id number] IMPRESSION: No acute findings.
--- NOTE | 2025-09-01 20:26 | CTR_ITS ---
PROCEDURE INFORMATION: Exam: CT Cervical Spine Without Contrast Exam date and time: 09/01/2025 8:32 PM Age: 55 years old Clinical indication: Injury or trauma; Fall; Additional info: HX cspine fusion, fall off ladder onto R head/neck TECHNIQUE: Imaging protocol: Computed tomography of the cervical spine without contrast. Radiation optimization: All CT scans at this facility use at least one of these dose optimization techniques: automated exposure control; mA and/or kV adjustment per patient size (includes targeted exams where dose is matched to clinical indication); or iterative reconstruction. COMPARISON: CT cervical spin wo con* [id number] 11/16/2024 3:49 PM RADIATION DOSE METRICS: Total DLP (mGy-cm): 243.1 FINDINGS: Bones: No acute fracture. Normal alignment. Postoperative changes from anterior fusion from C4 through C6 with discectomy and disc spacers at C4-C5 and C5-C6. Diffuse facet arthropathy. No severe neural foraminal or canal narrowing. Lungs: Lung apices are normal. Soft tissues: Unremarkable. CT/CT cervical spin wo con* [id number] IMPRESSION: No acute cervical spine fracture.
[2025-09-01 20:28] VITALS: BP 123/80; PULSE 92; RESP 20; O2SAT 95
--- NOTE | 2025-09-01 20:48 | ED_ITS ---
HPI - Fall 2 General: Chief Complaint: Fall Stated Complaint: fall from ladder, hit head n/v head. neck surg Time Seen by Provider: 09/01/25 19:57 History of Present Illness: Patient is a 55-year-old female with a history of prior cervical fusion, TIA who presents after a fall earlier today onto a wood floor, landing on her right shoulder and head. She reports transiently being dazed, followed by persistent headache, pressure sensation, dizziness, nausea, and difficulty focusing. She notes increased neck pain and tightness, worsened by movement, and soreness in her ribs and shoulder, with pre-existing shoulder issues. She denies use of blood thinners and has no history of diabetes or heart disease. She has not taken any medications at home for her symptoms. She reports no further episodes of passing out since the initial event and is able to ambulate. The fall was approximately 4 feet from a ladder, denies any severe headache, chest pain, shortness of breath, syncope just prior. Denies any new numbness or tingling down her bilateral upper extremities. Associated symptoms-after fall: Reports headache(s) Related Data Previous Rx's ?Medication ?Instructions ?Recorded Bone Growth Stimulator #1 ea 12/29/24 naproxen 500 mg tablet 500 mg PO BID #30 tabs 03/09 cynflveawn-pdvmgvuwayipg-pbuivcsd 1 cap PO BID PRN hea d #10 caps 09/01/25 50 mg-300 mg-40 mg capsule (Fioricet) celecoxib 100 mg capsule 100 mg PO BID #14 caps 09/01 ondansetron 4 mg disintegrating 4 mg PO Q8H PRN nausea and 09/01/25 tablet vomiting 5 days #14 tabs Allergies Allergy/AdvReac Type Severity Reaction Status Date / Time latex Allergy ALGY-Hives Verified 09/01/25 19:48 tetracycline Allergy ALGY-Difficulty Verified 09/01/25 19:48 Breathing Review of Systems 2 General: Reports: 10 or more systems reviewed and unremarkable except in HPI and below Musc: Reports: extremity pain Neuro: Reports: headache(s) PFSH ED 2 PFSH: Medical History (Updated 09/01/25 @ 21:56 by Sha Brooks DO) TIA (transient ischemic attack) No pertinent past medical history Surgical History No pertinent past surgical history Family History Denies family history of Colon cancer Ovarian cancer Diabetes Heart disease Hypercholesteremia Breast cancer Hypertension Uterine cancer Thyroid disease Stroke Social History Smoking and tobacco/nicotine status: former use of tobacco/nicotine Substance/Drug Use: never Female Reproductive History: Spontaneous abortions: No Physical Exam 2 Narrative: EXAM NARRATIVE: Patient overall well-appearing, vital stable, afebrile, no acute distress. Appears mildly photophobic but pupils equal round reactive, no nystagmus, moving all 6 extremities symmetrically and spontaneously, ambulating without issue or ataxia. Finger-nose intact bilaterally. Does have a small soft tissue contusion to her right parietal scalp, some right paravertebral hypertonicity and tenderness on the right side, no midline step-offs, tenderness elicited. Mild diffuse right shoulder and upper arm tenderness, no obvious deformities, compartments soft, pain elicited with shoulder flexion and abduction, no elbow or wrist tenderness, range of motion restrictions. 2+ radial pulse. Course 2 Vital Signs: Vital signs: Vital Signs Temperature 98.0 F 09/01/25 19:42 Pulse Rate 60 09/01/25 22:19 Respiratory Rate 16 09/01/25 22:19 Blood Pressure 121/74 09/01/25 22:19 Pulse Oximetry 97 09/01/25 22:19 Oxygen Delivery Me thod Room Air 09/01/25 21:51 MDM - Fall Medical Decision Making -ddx: Concussion, posttraumatic headache, intracranial bleed, whiplash injury, cervical spinal fracture, migraine, shoulder fracture versus dislocation - Patient overall well-appearing, with 5 foot fall from ladder that sounded purely mechanical earlier this afternoon, was dazed but no actual LOC, not on blood thinners. Has a history of cervical spinal fusion. Clinically sounds like she has a concussion that has been progressive, has felt nausea but no vomiting. With her surgical history and worsening headache, will obtain CT head C-spine, also has some shoulder pain but no obvious deficits but will get a right shoulder, humerus and chest x-ray, treat headache and reassess. - Patient with negative CTs and x-rays for acute fractures, dislocations, cord compression, concerns for internal bleeding. She felt improved with headache medication, had unremarkable basic labs, was able to ambulate without issue, p.o. challenge and was deemed stable for discharge and thought to have a mild concussion, given Celebrex to help her swelling and pain of her left neck with hypertonic muscles that seem to occur from the fall. She was also given a trial of Fioricet and Zofran as needed, encouraged follow-up within a week for reevaluation, supportive care recommendations for concussion given, at bedside and will continue to monitor her, strict return precautions given. Lab Data 09/01/25 20:56 09/01/25 20:56 Radiology Impressions Cervical Spine CT 09/01/25 20: IMPRESSION: No acute cervical spine fracture. Chest X-Ray 09/01/25 20: IMPRESSION: No acute findings. Head CT 09/01/25 20: IMPRESSION: No acute intracranial abnormality. Humerus X-Ray 09/01/25 20: IMPRESSION: No acute findings. Shoulder X-Ray 09/01/25: IMPRESSION: No acute findings. Laboratory Results WBC 5.58 10^3/uL (3.29-11.43) 09/01/25 20:56 RBC 3.86 10^6/uL (3.85-5.65) 09/01/25 20:56 Hgb 11.80 g/dL (11.27-16.99) 09/01/25 20:56 Hct 34.5 % (36-47) L 09/01/25 20:56 MCV 89.4 fl (85-98) 09/01/25 20:56 MCH 30.6 pg (27-33) 09/01/25 20:56 MCHC 34.2 g/dL (30-55) 09/01/25 20:56 RDW 12.2 % (12.1-15.1) 09/01/25 20:56 Plt Count 224 10^3/cmm (157-399) 09/01/25 20:56 MPV 10.0 fL (7.4-10.4) 09/01/25 20:56 Neut % (Auto) 42.8 % 09/01/25 20:56 Lymph % (Auto) 43.0 % 09/01/25 20:56 Keith % (Auto) 9.9 % 09/01/25 20:56 Eos % (Auto) 3.2 % 09/01/25 20:56 Baso % (Auto) 0.9 % 09/01/25 20:56 Neut # (Auto) 2.39 10^3/uL (1.8-7.7) 09/01/25 20:56 Lymph # (Auto) 2.4 10^3/uL (0.8-4.8) 09/01/25 20:56 Keith # (Auto) 0.6 10^3/uL (0.2-0.9) 09/01/25 20:56 Eos # (Auto) 0.2 10^3/uL (0.0-0.8) 09/01/25 20:56 Baso # (Auto) 0.1 10^3/uL (0.0-0.1) 09/01/25 20:56 Nucleated RBC % (auto) 0 % 09/01/25 20:56 Nucleated RBCs # 0.0 /100WBC 09/01/25 20:56 Sodium 141 mmol/L (136-145) 09/01/25 20:56 Potassium 3.5 mmol/L (3.5-5.1) 09/01/25 20:56 Chloride 104 mmol/L (98-107) 09/01/25 20:56 Carbon Dioxide 26 mmol/L (22-29) 09/01/25 20:56 Anion Gap 14.5 (5-19) 09/01/25 20:56 BUN 15 mg/dL (6-20) 09/01/25 20:56 Creatinine 0.6 mg/dL (0.5-0.9) 09/01/25 20:56 GFR Calculation 103.8 mL/min (90-130) 09/01/25 20:56 Glucose 94 mg/dL (65-115) 09/01/25 20:56 Calculated Osmolality 293 mOsm/kg (285-295) 09/01/25 20:56 Calcium 9.1 mg/dL (8.5-10.5) 09/01/25 20:56 All radiology interpretation(s) finalized by discharge Discharge Plan Discharge Patient Disposition: Home Clinical Impression: Concussion Qualifiers: Encounter type: initial encounter Loss of consciousness presence/duration: w ithout LOC Qualified Code(s): S06.0X0A - Concussion without loss of consciousness, initial encounter Fall Qualifiers: Encounter type: initial encounter Qualified Code(s): W19.XXXA - Unspecified fall, initial encounter Condition: Stable Prescriptions: New celecoxib 100 mg capsule 100 mg PO BID Qty: 14 0RF ondansetron 4 mg tablet,disintegrating 4 mg PO Q8H PRN (Reason: nausea and vomiting) 5 Days Qty: 14 0RF lxwzxrftez-hpaqfoblxywya-ugva [Fioricet] 50-300-40 mg capsule 1 cap PO BID PRN (Reason: head) Qty: 10 0RF No Action naproxen 500 mg tablet 500 mg PO BID Qty: 30 0RF (DME) Bone Growth Stimulator See Rx Instructions .Route .MEDSUPPLY Qty: 1 0RF Rx Instructions: As directed Discharge Orders: Discharge ED (Routine); Ordered 09/01/25 Ordered By: Sha Brooks Referrals: Gloria Arrieta FNP [Primary Care Provider, Nurse Practitioner] Discharge Diet: Advance as tolerated Discharge Activity: Increase activity as tolerated Patient Instructions: Concussion/Head Injury - Adult, Opioid Safety, Pain Management, Patient Portal & Leonardo Instructions Activity Restrictions/Additional Instructions: You were seen after your fall earlier today, you were evaluated with x-rays, CT scans and labs that were not concerning for any fractures, dislocations or internal bleeding. You most likely have a mild concussion that is causing your headache, dizziness and brain fog. The only thing that is needed is to slowly return to normal activity and repeat further head trauma. For your headaches, use Tylenol 650 mg every 8 hours as needed, for breakthrough headache, try using the Fioricet, 1 tablet at a time, twice daily as needed, this medication can be sedating so do not drive or operate heavy machinery with this medication. For your tight neck muscles from this fall, use the stronger anti-inflammatory, Celebrex 100 mg every 12 hours as needed, this is in place of ibuprofen/naproxen so do not use that while on this medication. For any nausea or vomiting, use the Zofran 4 mg every 8 hours as needed. Avoid heavy eye straining, ensure you stay hydrated and slowly return to your normal activity as your body allows it. Make a follow-up appointment with your primary care physician next week to ensure you are improving. Return to the ED with severe worsening of her headache, continuous vomiting, severe confusion, recurrent episodes of passing out, any other emergent concerns. Print Language: Libyan Coding Level of Care Code ED Correctional Case Records Supervisor for Dejon Thomason
[2025-09-01] MEDS: ondansetron 2 mg/ML SDV 2 mL 4 MG IVP (21:04)
[2025-09-01 21:05] VITALS: BP 141/83; PULSE 45; RESP 14; O2SAT 96
[2025-09-01 21:20] LABS: Anion Gap 14.5 (5-19); Blood Urea Nitrogen 15 mg/dL (6-20); Calcium 9.1 mg/dL (8.5-10.5); Carbon Dioxide 26 mmol/L (22-29); Chloride 104 mmol/L (98-107); Creatinine Clr Calc Pharmacy 119.4687; Glucose 94 mg/dL (65-115); Osmolality Calculated 293 mOsm/kg (285-295); Potassium 3.5 mmol/L (3.5-5.1); Sodium 141 mmol/L (136-145)
[2025-09-01 21:25] LABS: Hematocrit 34.5 % (36-47); Hemoglobin 11.80 g/dL (11.27-16.99); Mean Corpuscular HGB Conc 34.2 g/dL (30-55); Mean Corpuscular Hemoglobin 30.6 pg (27-33); Mean Corpuscular Volume 89.4 fl (85-98); Nucleated Red Blood Cells % 0 %; Platelet Count 224 10^3/cmm (157-399); Red Blood Count 3.86 10^6/uL (3.85-5.65); White Blood Count 5.58 10^3/uL (3.29-11.43)
[2025-09-01 21:51] VITALS: BP 141/83; PULSE 47; RESP 14; O2SAT 96
[2025-09-01 22:19] VITALS: BP 121/74; PULSE 60; RESP 16; O2SAT 97
== END 2025-09-01 22:20 | disposition home or self-care (01) ==
PROVIDERS: Emergency Provider Student in an Organized Health Care Education/Training Program; PCP Nurse Practitioner
DX: S06.0X0A Concussion without loss of consciousness, initial encounter (principal); W11.XXXA Fall on and from ladder, initial encounter; Z87.891 Personal history of nicotine dependence; Z86.73 Personal history of transient ischemic attack (TIA), and cerebral infarction without residual deficits
CPT/HCPCS: 36415; 70450; 71045; 72125; 73020; 73060; 80048; 85025; 96374; 96375; 99285; J1885; J2405

== ENCOUNTER → 2025-09-14 10:39 | Outpatient (BNVA) | payer MEDICAID, SELFPAY | PROVIDERS: PCP Nurse Practitioner; Visit Provider Nurse Practitioner | DX: M54.50 Low back pain, unspecified (principal); R31.9 Hematuria, unspecified; S70.01XA Contusion of right hip, initial encounter; W19.XXXA Unspecified fall, initial encounter | CPT/HCPCS: 73502; 81000; 87086 ==

== ENCOUNTER 2025-09-18 11:46 | Emergency (ER) | payer MEDICAID, SELFPAY ==
--- OUTSIDE RECORDS SUMMARY | 2025-09-18 11:51 | XMS_ITS | Data Portability ---
Author Organization [facility] Address [address] [place] [phone] Assessment No assessment recorded. Plan of Treatment [...] Promoted; acuity set as *; Not Available [facility] 3 03:07:41 Problem Notes None recorded. Medical Equipment None Reported. Allergies Allergen ID Allergen Name Allergen Category Reaction Reaction Severity Criticality Documentation Date Start Date Code Code System Note Provider Name and Address Organization Details Recorded Time 93519 Substance with tetracycl ine structure (substanc e) medicatio n hives Not available Not available 06/01/2023 97295 8001 SNOMED React ion: Hives , Dizzi ness; Comme nt: Recor ded 03/07 2:40P M by Delmy jurado LPN, Offic e Visit ; Promo henri; Signjarek mahmood ce: *; ; Not Available [facility] 3 02:24:39 Vitals None Recorded Social History [...] ICD10 Code Diagnosis IMO Codes Diagnosis Note [id number] JUN GILLETTE [facility] ([facility]) [address] [place] [address] 11/16/2024 14:49:01 11/16/2024 15:14:18 Health Concerns Section Related Observation LastModified by Organization Detai ls LastModified Time None Recorded Concern Status LastModified by Organization Details LastModified Time None Recorded Advance Directives Directive None Recorded Payers Insurance Date Sequence Insurance Name Policy Number Policy Bell Covered Member ID Bell Member ID Guarantor Name 11/16/2024 1 [place] Samanta Guallpa [id number] Samanta Guallpa OBGyn Episode No OBEpisode recorded.
[2025-09-18 12:03] VITALS: BP 113/61; PULSE 72; RESP 17; TEMP 36.7; O2SAT 97; BMI 29.9
--- NOTE | 2025-09-18 12:10 | W.ED.WOUNDLC ---
HPI - Wound/Laceration General: Chief Complaint: Wound/Laceration Stated Complaint: thumb lac Time Seen by Provider: 09/18/25 12:03 History of Present Illness: Patient is a 55-year-old female without medical issues that was utilizing a battery powder [employer] drill when the bed slipped off and lacerated her left thumb. This occurred just prior to arrival. She stated there was bleeding profusely at home. Patient has superficial area to left. Selected Entries 09/18/25 12:03 ED Triage Comment PT STATES SHE HAD A RESTREPO BIT HIT HER THUMB. PT HAS SUPERFICIAL LACER ATION TO THE LEFT THUMB. BLEEDING CO NTROLLD IN TRIAGE. PT STATES SHE TH INKS SHE IS UTD ON TETANUS. Associated symptoms: Reports nausea; Denies chills, fever(s) or vomiting Related Data Previous Rx's ?Medication ?Instructions ?Recorded Bone Growth Stimulator #1 ea 12/29/24 [id number]-nhyajvqhamkkr-[id number] 1 cap PO BID PRN head #10 caps 09/01/25 50 mg-300 mg-40 mg capsule (Fioricet) celecoxib 200 mg capsule (Celebrex) 200 mg PO BID #60 caps 09/14/25 cephalexin 500 mg capsule 500 mg PO BID 5 days #10 caps 09/18/25 Allergies Allergy/AdvReac Type Severity Reaction Status Date / Time latex Allergy ALGY-Hives Verified 09/01/25 19:48 tetracycline Allergy ALGY-Difficulty Verified 09/01/25 19:48 Breathing Review of Systems General: Reports: 10 or more systems reviewed and unremarkable except in HPI and below Const: Denies: fever(s) or chills ENMT: Denies: throat pain or mouth pain Card: Denies: chest pain or palpitations Resp: Denies: dyspnea or non-productive cough GI: Reports: nausea; Denies: abdominal pain or vomiting : Denies: flank pain or difficulty voiding Musc: Reports: extremity pain Skin/Breast: Denies: rash or pruritus Neuro: Denies: headache(s), numbness in extremities, weakness in extremities or sensory changes Psych: Denies: anxiety or depression [facility] ED PFSH: Medical History (Updated 09/18/25 @ 12:43 by DALLIN Kaiser) TIA (transient ischemic attack) No pertinent past medical history Surgical History No pertinent past surgical history Family History Denies family history of Colon cancer Ovarian cancer Diabetes Heart disease Hypercholesteremia Breast cancer Hypertension Uterine cancer Thyroid disease Stroke Social History Smoking and tobacco/nicotine status: former use of tobacco/nicotine Substance/Drug Use: never Female Reproductive History: Spontaneous abortions: No Physical Exam Const: COMMON NORMALS: no acute distress, average body habitus and patient oriented x3 HENMT: COMMON NORMALS: normocephalic and atraumatic HEAD & SCALP: normocephalic and atraumatic Neck/C-Spine: COMMON NORMALS: full ROM, no lymphadenopathy, supple and no meningeal signs Lymph: LYMPHATIC: no lymphadenopathy noted Chest: COMMONS NORMALS: normal inspection of the chest and normal palpation of entire chest wall Resp: COMMON NORMALS: normal respiratory effort, No retractions and No use of accessory muscles Cardio: COMMON NORMALS: regular rate and regular rhythm RATE: regular rate RHYTHM: regular rhythm GI: COMMON NORMALS: Normal to inspection, nondistended, normoactive bowel sounds present, Soft to palpation, non-tender and No hepatosplenomegaly present PALPATION: Yes Soft to palpation and Yes No hepatosplenomegaly present : COMMON NORMALS: Yes no CVA tenderness BLADDER/KIDNEY EXAM: Yes no CVA tenderness Back/Pelvis: COMMON NORMALS: no CVA tenderness and thoracic and lumbar spine normal to inspection Extremity: COMMON NORMALS: full ROM NARRATIVE EXTREMITY EXAM: Extension flexion intact with tendon. LEFT UPPER EXTREMITY: Yes upper arm Left upper arm: Yes inspection (laceration) and Yes neurovascular exam (intact) EXTREMITY IMAGE (FRONT):  1. Superficial 3 cm MIP Neuro: COMMON NORMALS: patient oriented x3 MENINGEAL SIGNS: Yes no meningeal signs Psych: COMMON NORMALS: mental status grossly normal, Normal thought process present and cooperative THOUGHT PROCESS: Normal thought process present Procedures Nerve Block Nerve Block 1: Time out performed: Yes Local Anesthetic: lidocaine 1% Amount of anesthesia used (mL): 3 Side: left Nerve Blocks: digital Procedure Successful: Yes Patient Tolerated Procedure: well and no complications Complications: other (nausea) Course Vital Signs: Vital signs: Vital Signs Temperature 98.1 F 09/18/25 12:03 Pulse Rate 54 L 09/18/25 13:08 Respiratory Rate 17 09/18/25 12:03 Blood Pressure 135/73 09/18/25 13:08 Pulse Oximetry 97 09/18/25 13:08 Oxygen Delivery Me thod Room Air 09/18/25 12:42 MDM - Wound/Laceration Medical Decision Making Patient is a pleasant 55-year-old female that was utilizing a battery-powered [place] screwdriver when the bit came off and lacerated her left thumb. There was no foreign body on x-ray. Laceration was superficial. The wound was cleaned, and Steri-Stripped. Patient was updated on tetanus shot. She is given [place] x 1 and Zofran due to complaints of pain. Patient was advised to ice, take Tylenol, and ibuprofen going forward. Patient states understanding. Digital block was required in order to wash the wound and Steri-Strip it for comfort. Lab Data Radiology Impressions Finger X-Ray 09/18/25 12:27 IMPRESSION: No acute osseous abnormality. XR interpretation done by ED provider, pending radiology final review ED provider radiology interpretation(s): No acute findings Discharge Plan Discharge Patient Disposition: Home Clinical Impression: Laceration of left thumb Qualifiers: Encounter type: initial encounter Damage to nail status: without damage Foreign body presence: without foreign body Qualified Code(s): S61.012A - Laceration without foreign body of left thumb without damage to nail, initial encounter Condition: Stable Prescriptions: New cephalexin 500 mg capsule 500 mg PO BID 5 Days Qty: 10 0RF No Action celecoxib [Celebrex] 200 mg capsule 200 mg PO BID Qty: 60 2RF (DME) Bone Growth Stimulator See Rx Instructions .Route .MEDSUPPLY Qty: 1 0RF Rx Instructions: As directed [id number]-[id number] [Fioricet] 50-300-40 mg capsule 1 cap PO BID PRN (Reason: head) Qty: 10 0RF Discharge Orders: Discharge ED (Routine); Ordered 09/18/25 Ordered By: Luciana Cain Referrals: Gloria Arrieta FNP [Primary Care Provider, Nurse Practitioner] Discharge Diet: Usual diet Discharge Activity: Limit activity as instructed Patient Instructions: Finger Sprain (ED), Opioid Safety, Pain Management, Patient Portal & Leonardo Instructions Activity Restrictions/Additional Instructions: - Ice, and elevation does not help with pain. - Leave Steri-Strips on until they fall off. - You may apply antibiotic ointment over the Steri-Strips for 24 hours, then Vaseline - Antibiotics at the pharmacy: [facility] locally since the other pharmacies are closed. Utilize as directed. Take a probiotic or utilize active culture yogurt to avoid infectious diarrhea. Thank you for choosing [facility] for your healthcare needs today. You have been screened and evaluated and felt safe for discharge. Health conditions do change or evolve sometimes and as such it is important that you follow up with your Primary Doctor to be re checked, 3-5 days is a general good time frame for follow up. You are always welcome to return to the ED for re assessment if your symptoms are worsening or you have new concerns Print Language: Bulgarian Coding Level of Care Code ED Resort Keeper for Dejon Thomason
--- NOTE | 2025-09-18 12:27 | XRR_ITS ---
PROCEDURE INFORMATION: Exam: XR Left Finger(s) Exam date and time: 09/18/2025 12:29 PM Age: 55 years old Clinical indication: Injury or trauma; Other: Drill vs finger; Puncture; Left; Thumb; Additional info: Lt thumb puncture wound from power drill TECHNIQUE: Imaging protocol: Radiologic exam of the left fingers. Views: Minimum 2 views. COMPARISON: No relevant prior studies available. FINDINGS: Bones/joints: Mild proliferative changes at the 1st CMC joint. Normal alignment. No acute fracture. Soft tissues: Normal. XR/XR finger LT min 2V [id number] IMPRESSION: No acute osseous abnormality.
[2025-09-18 12:42] VITALS: BP 113/61; PULSE 50; O2SAT 98
[2025-09-18] MEDS: tetanus-dipt-pertussis 0.5 mL SDV IM (12:43)
[2025-09-18] MEDS: HYDROcodone-acetaminophen 10-325 mg Tablet 1 TAB PO (12:44)
[2025-09-18] MEDS: ondansetron hcl ODT 4 mg Tab PO (12:44)
[2025-09-18 13:08] VITALS: BP 135/73; PULSE 54; O2SAT 97
== END 2025-09-18 13:13 | disposition home or self-care (01) ==
PROVIDERS: Emergency Provider Physician Assistant; PCP Nurse Practitioner
DX: S61.012A Laceration without foreign body of left thumb without damage to nail, initial encounter (principal); Z87.891 Personal history of nicotine dependence; Z86.73 Personal history of transient ischemic attack (TIA), and cerebral infarction without residual deficits; W29.8XXA Contact with other powered hand tools and household machinery, initial encounter
CPT/HCPCS: 73140; 90471; 90715; 99283; J9999; Q0162

== ENCOUNTER → 2025-10-26 11:08 | Outpatient (BNVA) | payer MEDICAID, SELFPAY | PROVIDERS: PCP Nurse Practitioner; Visit Provider Podiatrist Foot & Ankle Surgery | DX: M79.672 Pain in left foot (principal); M72.2 Plantar fascial fibromatosis | CPT/HCPCS: 73630; 99203 ==